=== PATIENT | male | born 1950 | race Caucasian/White ===

== ENCOUNTER 2018-06-03 09:48 | Inpatient (IN) ==
[2018-06-03] MEDS ORDERED: Clindamycin 900 MG/50 ML 900 MG/50 ML IV.SOLN IVPB ONE (10:00)
--- NOTE | 2018-06-03 10:46 | History & Physical Report ---
Date of Encounter: 06/03/18 Time of Encounter: 10:46 24 Hour HP Update - Instructions Instructions: If the History and Physical is less than 30 days old and was completed prior to A.M. admission and or procedure and has NOT been updated on calendar day of procedure please complete this update prior to performing procedure. - Update Patient reports changes in Medical Condition: No Changes in examination, assessment, or condition: No Changes in Medication: No Preop tests/diagnostics Reviewed: Yes Surgery Remains Indicated: Yes Consent for Planned Operative Procedure(s) Verified: Yes - Pre-Operative Checklist Preoperative Checklist Indicated: No Prophylactic Antibiotic Ordered: Yes Is VTE Prophylaxis Indicated?: Yes
[2018-06-03] MEDS ORDERED: *HR* Midazolam HCl 2 MG/2 ML VIAL ONE ×3 (11:33→13:31)
[2018-06-03] MEDS ORDERED: *HR* FentaNYL (PF) 100 MCG/2 ML VIAL ONE ×3 (11:33→13:31)
[2018-06-03] MEDS ORDERED: Ondansetron 4 MG/2 ML VIAL ONE ×3 (11:36→13:31)
[2018-06-03] MEDS ORDERED: Dexamethasone 4 MG/ML VIAL ONE ×3 (11:36→13:32)
[2018-06-03] MEDS ORDERED: Ketorolac 30 MG/ML VIAL ONE ×2 (12:21→13:21)
[2018-06-03] MEDS ORDERED: *HR* Propofol 200 MG/20 ML VIAL IVP ONE ×2 (12:22→13:21)
[2018-06-03] MEDS ORDERED: *HR* Succinylcholine 200 MG/10 ML VIAL IVP ONE ×2 (12:22→13:20)
[2018-06-03] MEDS ORDERED: Famotidine 20 MG/2 ML VIAL IVP ONE (12:26)
[2018-06-03] MEDS ORDERED: Acetaminophen IV 1,000 MG/100 ML INFUS..BTL IVPB ONE (12:26)
[2018-06-03] MEDS ORDERED: Pregabalin 75 MG CAPSULE PO ONE (12:26)
[2018-06-03] MEDS: Ringers Solution, Lactated 1,000 ML IVC SCH ×3 (13:11→20:00)
[2018-06-03] MEDS ORDERED: Ethanol\\Acetic Acid\\Na Ace\\Ben 1,000 ML IRRIG.SOLN IR ONE (13:17)
[2018-06-03] MEDS ORDERED: Lidocaine -MPF 4% 5 ML AMPUL ONE (13:20)
[2018-06-03] MEDS ORDERED: Lidocaine -MPF 2% 2 ML VIAL ONE ×2 (13:20→13:42)
[2018-06-03] MEDS ORDERED: Propofol 500 MG/50 ML INFUS..BTL ONE ×2 (13:33)
--- NOTE | 2018-06-03 13:34 | Anesthesia Evaluation PreOp ---
Date of Encounter: 06/03/18 Time of Encounter: 13:30 - Past History Planned Operation: Bilateral TKA Cardiac History: HTN, Hyperlipidemia Pulmonary History: Denies Any Significant HX, RAKESH Dx (CPAP) RATER ASSOCIATE History: Denies Any Significant HX Other Medical History: Diabetes Type II, Thyroid, GERD, Other (MO) Anesthesia History: No Prior Anesthetic Complications Alcohol Use: none Drug use: none Medications and Allergies Aspirin [Lo-Dose Aspirin EC] 81 mg PO DAILY 06/03/18 [History] Atorvastatin Calcium 80 mg PO HS 06/03/18 [History] Cholecalciferol (D-3) [Vitamin D] 1,000 unit PO DAILY 06/03/18 [History] FLUoxetine HCl [PROzac] 60 mg PO QAM 06/03/18 [History] Levothyroxine [Synthroid] 50 mcg PO 0630 06/03/18 [History] Lisinopril [Zestril] 5 mg PO DAILY 06/03/18 [History] Meclizine HCl [Verticalm] 25 mg PO TID 06/03/18 [History] Melatonin [Melatin] 3 mg PO HS 06/03/18 [History] Metformin HCl [Glucophage Xr] 750 mg PO QPM 06/03/18 [History] Naproxen [Naprosyn] 500 mg PO Q12H 06/03/18 [History] Omeprazole [PriLOSEC] 20 mg PO DAILY 06/03/18 [History] OxyCODONE ER (12 HR) [OxyCONTIN] 10 mg PO TID 06/03/18 [History] Pregabalin [Lyrica] 75 mg PO BID 06/03/18 [History] 3 Allergy/AdvReac Type Severity Reaction Status Date / Time diphenhydramine Allergy Hives Verified 06/03/18 10:26 [From Benadryl] Penicillins Allergy Hives Verified 06/03/18 10:26 - Meds/Allergy Pre-op Review Medications Reviewed: Yes Allergies Reviewed: Yes Beta Blockers on Current Med List: No Anesthesia Results - Labs Laboratory Tests 05/27/18 05/27/18 09:38 09:38 Hgb 13.5 Hct 40.5 Plt Count 192 Sodium 138 Potassium 4.4 BUN 26 H Creatinine 0.79 - Imaging EKG: report reviewed (SR) Anesthesia Exam O2 Sat Height 1.88 m Height 1.88 m Height 1.88 m Weight 142.428 kg Weight 142.428 kg Weight 142.428 kg O2 Sat by Pulse Oximetry 94 Vital Signs Temp Pulse Resp BP Pulse Ox 98.6 F 80 18 129/82 94 06/03/18 10:15 06/03/18 10:15 06/03/18 10:15 06/03/18 10:15 06/03/18 10:15 Height: 6'2 Weight: 314 lbs NPO (# of Hours): MN Pain Scale: 0 - HEENT Pupil (Motor): Pupils equal, EOMI Mallampati: II Oral Opening: Greater than 3 - RATER ASSOCIATE LOC: Oriented RATER ASSOCIATE Motor: Normal RUE, Normal LUE, Normal RLE, Normal LLE, Normal Face RATER ASSOCIATE Sensory: Normal: RUE, LUE, RLE, LLE, Face - Cardiac Rhythm: Regular Murmur: None JVD: No Carotid Bruit: No - Pulmonary Breath Sounds: bilateral Clear Respiratory Effort: Symmetrical Anesthesia Assess/Plan ASA Score: 1 (MO RAKESH DM), 3 Modified Callahan Scale for Level of Consciousness: Cooperative, oriented, and tranquil Anesthetic Plan: Regional, MAC Monitoring Plan: Standard Monitors Recovery Plan: PACU (Discussed SAB, MAC, Adductor Canal Block, possible GA, agrees to proceed)
[2018-06-03] MEDS ORDERED: Dexmedetomidine HCl 400 MCG/100 ML MLS IVC ONE (13:41)
[2018-06-03] MEDS ORDERED: ROPIVACAINE HCL/PF 0.5% 30 ML VIAL ONE (13:41)
--- NOTE | 2018-06-03 14:21 | Anesthesia Procedures ---
Date of Encounter: 06/03/18 Time of Encounter: 14:00 Procedures: Anesthesia - Epidural/Spinal Patient ID/Chart reviewed: Yes Patient examined: Yes Supplemental Oxygen: Nasal Cannula Supplemental Oxygen Rate (L/min): 2 Sedation: Versed (mg): 2 Sedation: Fentanyl (mcg): 100 Site Prep: Sterile prep and drape, 0.5% Chlorhexidine/Alcohol Patient position: upright Local Anesthetic: Lidocaine 1% Interspace Used: L3-L4 Blood: No CSF: Yes Paresthesia: No Spinal Needle Gauge: 22 Spinal Dose: 2.5 ml of 0.5% bupivacaine with 300mcgs duramorph Procedure: bilateral robotic knees Vitals + FHT's: Vital Signs/O2 Sat, Most Current Temp Pulse Resp BP Pulse Ox 98.6 F 80 18 136/97 96 06/03/18 10:15 06/03/18 13:53 06/03/18 10:15 06/03/18 13:53 06/03/18 13:53
--- NOTE | 2018-06-03 15:04 | Anesthesia Procedures ---
Date of Encounter: 06/03/18 Time of Encounter: 14:25 Procedures: Anesthesia - Nerve Block Procedure Date: 06/03/18 Time: 14:25 Checklist: Correct Patient Identifier, Correct procedure, History checked Correct side: Left Blood Thinner: No Monitor Applied: EKG, BP, Pulse Oximetry Supplemental Oxygen via Nasal Cannula (L/min): 2 Indication: Post Op Analgesia Pre-op Neuro Deficits: No Block Type: Other (bilateral adductor canal blocks left and right) Catheter placed: No Sterile Technique: Yes Ultrasound used: Yes Anatomy identified: Yes Visual spread of Local: Yes Neuro Stimulation: No Blood on Needle Aspiration: No Smooth Injection of Local: Yes Pain with Injection of Local: No Prep: Chlorhexadine Needle: 21 x 100 mm Stimuplex Local: Ropivacaine (0.5 % with 20 mcgs of precedex) Volume (cc): 30 Number of Attempts: 1 Complications: None/effective block Vitals: Vital Signs/O2 Sat, Most Current Temp Pulse Resp BP Pulse Ox 98.6 F 80 18 136/97 96 06/03/18 10:15 06/03/18 13:53 06/03/18 10:15 06/03/18 13:53 06/03/18 13:53 Comments: thsi is was a bilateral adductor canal block left and right side performed. Andrew Stoll NEW ACCOUNTS BANKING REPRESENTATIVE right side and lennox johnson NEW ACCOUNTS BANKING REPRESENTATIVE left side.
--- NOTE | 2018-06-03 16:06 | Orthopedic Operative Note ---
Date of procedure: 06/03/18 Pre-op diagnosis: Bilateral knee arthritis Post-op diagnosis: same Procedure: Procedure: Bilateral robotic-assisted Total knee replacement Estimated blood loss:500 cc Hardware: Metal and polyethylene replacement. Both knees Weldon Femur: 7 Tibia: 7 TS insert: 11 Patella: 39 Exam Under anesthesia: Left knee, 1 degree flexion contracture 4 degree varus, right knee, 9 degree flexion contracture 5 degree varus as calculated by the robot full flexion and no instability Procedural Notes: Left knee patient noted to have grade 3 arthritic changes all 3 compartments, right knee patient noted to have grade 4 arthritic changes all 3 compartments. Operative procedure: The patient was brought to the operating room and placed on the operating room table. After general anesthesia was administered the operative knee was examined. Findings were noted in the exam under anesthesia. The operative extremity was prepped and draped in sterile surgical fashion. The patient received IV antibiotics prior to skin incision. Surgery dictated will be for both knees any differences will be highlighted surgery began with the left knee followed by the right knee. A standard midline incision was made centered over the patella. The incision was made through the skin and subcutaneous tissue. A medial parapatellar tendon approach was performed. Care was taken to preserve tissue along the medial aspect of the patella. And to protect the patella tendon. The deep MCL was released off the medial tibia. The infra patella fat pad was excised. The patella was everted and cut was made at the level of the insertion of the quadriceps and patella tendon. The patella was sized to a 39 the guide was seated and the lug holes are drilled. Knee was brought into flexion. Patient noted to have grade 3 arthritic changes all 3 compartments left knee, grade 4 arthritic changes all 3 compartments right knee. Steinmann pins were placed in the tibia and the femur for the tibial and femoral arrays respectively. Checkpoints were also placed in the tibia and the femur for calculation purposes. The knee including the femur and the tibial registered. Osteophytes, ACL and PCL were excised at this point. Extension and flexion were assessed with a valgus stress components were adjusted on the computer to balance the knee. Femoral cuts were made first with robotic assistance, these included the anterior cut posterior cuts chamfer cuts. Tibial cut was then performed with robotic assistance as well. Bone fragments were removed, as well as the medial and lateral meniscus. The size 7 femoral guide was seated box cut was made lug holes are drilled. The size 7 tibial tray was seated and prepared with the fin cutter. Trial reduction with the 11 TS Theresa revealed extension of 0 degree and 2 degree varus left knee 3 degrees varus right knee, full flexion. No varus valgus instability. Trial reduction revealed excellent patella tracking. All trial components were removed all bony surfaces were irrigated. The Tibia was seated followed by the femur, The Theresa size 11 was seated and secured patella. Patient had similar findings for motion and stability. The knee was closed by the PA. The knee was then irrigated out with 2 L of pulse irrigation. The extensor mechanism was closed with #2 FiberWire suture and #2 PDS suture. The subcutaneous tissue was then irrigated and closed deep with #1 PDS suture superficially with 0 PDS suture and skin was closed with zip tie The patient was then placed in a sterile dressing and a postoperative brace extubated and transferred to recovery room in stable condition. Anesthesia: spinal Surgeon: Michael Carpio Was there an cosmetic sales assistant present: Yes Solar Process Engineer: Lillie Nair Estimated blood loss (cc): 500 Condition: stable Disposition: PACU
[2018-06-03 17:33] LABS: Hemoglobin 12.1 g/dL (12.9-16.9)
[2018-06-03] MEDS ORDERED: Ondansetron 4 MG/2 ML VIAL IVP PRN (18:11)
[2018-06-03] MEDS ORDERED: traMADol 50 MG TABLET PO PRN (18:11)
[2018-06-03] MEDS ORDERED: MOM Conc 10 ML UD.LIQ PO PRN (18:11)
[2018-06-03] MEDS ORDERED: *HR* Dextrose 50 % in Water (Syg) 50 ML SYRINGE IVP PRN (18:11)
[2018-06-03] MEDS ORDERED: D5% in Water 1,000 ML IVC PRN (18:11)
[2018-06-03] MEDS ORDERED: Sennosides 8.6 MG TABLET PO PRN (18:11)
[2018-06-03] MEDS ORDERED: *HR* OxyCODONE/APAP 5/325 TABLET PO PRN (18:11)
[2018-06-03] MEDS ORDERED: Temazepam 15 MG CAPSULE PO PRN (18:11)
[2018-06-03] MEDS ORDERED: Dextrose Gel 15 GM/37.5 ML TUBE PO PRN ×2 (18:11)
[2018-06-03] MEDS ORDERED: *HR* OxyCODONE Immed Rel 5 MG TABLET PO PRN (18:11)
[2018-06-03] MEDS ORDERED: Naloxone 0.4 MG/ML INJ IVP PRN (18:11)
[2018-06-03] MEDS: Clindamycin 900 MG/50 ML 900 MG/50 ML IV.SOLN IVPB SCH (20:00)
[2018-06-03] MEDS: Pregabalin 75 MG CAPSULE PO SCH (20:01)
[2018-06-03] MEDS: Melatonin 3 MG TABLET PO SCH (20:01)
[2018-06-03] MEDS: *HR* OxyCODONE ER (12 HR) 10 MG TABLET PO SCH (20:08)
[2018-06-03] MEDS: *HR* Enoxaparin 30 MG/0.3 ML SYRINGE SQ SCH (20:08)
[2018-06-03] MEDS: Insulin LISPRO 300 UNITS/3 ML VIAL SQ SCH ×2 (20:20→22:48)
[2018-06-04 01:57] LABS: Hematocrit 35.8 % (37.5-50.1); Hemoglobin 11.7 g/dL (12.9-16.9)
[2018-06-04 02:13] LABS: Potassium 5.3 mEq/L (3.5-5.1)
[2018-06-04] MEDS: Clindamycin 900 MG/50 ML 900 MG/50 ML IV.SOLN IVPB SCH (05:13)
[2018-06-04] MEDS: *HR* Enoxaparin 30 MG/0.3 ML SYRINGE SQ SCH ×2 (05:13→17:10)
[2018-06-04] MEDS: *HR* OxyCODONE ER (12 HR) 10 MG TABLET PO SCH ×2 (05:14→17:10)
[2018-06-04] MEDS: Insulin LISPRO 300 UNITS/3 ML VIAL SQ SCH ×4 (08:33→20:15)
[2018-06-04] MEDS: Cholecalciferol (D-3) 1,000 UNIT TABLET PO SCH (08:34)
[2018-06-04] MEDS: *HR* Metformin 500 MG TABLET PO SCH ×2 (08:34→17:09)
[2018-06-04] MEDS: FLUoxetine 20 MG CAPSULE PO SCH (08:34)
[2018-06-04] MEDS: Pregabalin 75 MG CAPSULE PO SCH ×2 (08:35→20:01)
--- NOTE | 2018-06-04 08:59 | Anesthesia Evaluation Post Op ---
Date of Encounter: 06/04/18 Time of Encounter: 09:00 - Vital Signs Vital Signs: Vital Signs/O2 Sat/Glucose, Most Current Temp Pulse Resp BP Pulse Ox 06/04/18 06:56 97.7 F 87 16 107/63 92 - Lungs Lungs: Clear Ascult./Percussion - Airway Airway: Non-obstructed - Cardiovascular Regular Rate - Mental Status Mental Status: Alert & Oriented, Answers Appropriately - Pain Pain Scale: 0 - Nausea Vomiting Nausea Vomiting: Not Present - Hydration Hydration: Tolerates oral liquids - Discharge PostOp Status: Transfer Patient to floor
--- NOTE | 2018-06-04 12:57 | Physician Discharge Referral ---
<Milana Adams L - Last Filed: 06/04/18 12:55> [facility] Referral Info Transfer To: F Provider in Charge: Provider in Charge after Transfer: PCP Institutional Level of Care: Skilled - Diagnosis (1) Status post total bilateral knee replacement Priority: Primary Status: Acute (2) Arthritis of knee Priority: Primary Status: Acute (3) Chronic pain Priority: Secondary Status: Chronic (4) RAKESH (obstructive sleep apnea) Priority: Secondary Status: Chronic (5) DMII (diabetes mellitus, type 2) Priority: Secondary Status: Chronic (6) HLD (hyperlipidemia) Priority: Secondary Status: Chronic (7) HTN (hypertension) Priority: Secondary Status: Chronic (8) Obesity Priority: Secondary Status: Chronic (9) Acute renal injury Priority: Secondary Status: Acute Expected Duration of Placement: < 30 days Prognosis: Good Aware of Diagnosis: Patient Aware of Prognosis: Patient - Transfer Medications Home Medications: Aspirin Enteric Coated [Aspirin EC] 325 mg PO BID #20 tablet. 06/03/18 [Rx] Aspirin [Lo-Dose Aspirin EC] 81 mg PO DAILY 06/03/18 [History] Atorvastatin Calcium 80 mg PO HS 06/03/18 [History] Cholecalciferol (D-3) [Vitamin D] 1,000 unit PO DAILY 06/03/18 [History] FLUoxetine HCl [PROzac] 60 mg PO QAM 06/03/18 [History] Levothyroxine [Synthroid] 50 mcg PO 0630 06/03/18 [History] Lisinopril [Zestril] 5 mg PO DAILY 06/03/18 [History] Meclizine HCl [Verticalm] 25 mg PO TID 06/03/18 [History] Melatonin [Melatin] 3 mg PO HS 06/03/18 [History] Metformin HCl [Glucophage Xr] 750 mg PO QPM 06/03/18 [History] Naproxen [Naprosyn] 500 mg PO Q12H 06/03/18 [History] Omeprazole [PriLOSEC] 20 mg PO DAILY 06/03/18 [History] OxyCODONE ER (12 HR) [OxyCONTIN] 10 mg PO TID 06/03/18 [History] OxyCODONE Immed Rel [Roxicodone 5 MG] 2 tab PO BID PRN 7 Days #14 tablet [Rx] Pregabalin [Lyrica] 75 mg PO BID 06/03/18 [History] Allergies/Adverse Reactions: 3 Allergy/AdvReac Type Severity Reaction Status Date / Time diphenhydramine Allergy Hives Verified 06/03/18 10:26 [From Benadryl] Penicillins Allergy Hives Verified 06/03/18 10:26 - Respiratory Orders None Smoking Cessation: Smoking cessation has been advised. For more information, call the [employer] Quit Line at 3-491-SOIF-NOW. - Mobility Orders Chair, Ambulate - Rehabiliation Orders Rehab Potential: Good Rehab Orders: ROM Exercises, Evaluation for Physical Therapy, Evaluation for Occupational Therapy - Treatments List/Other: Opsite dressing, leave intact until first post-operative visit. If dressing becomes >50% saturated, contact office, remove dressing and place appropriate dressing in its place. Do not allow for dressing to get wet. Zipline/Seaside in place, plan to remove at post-operative day #14-16. Total Joint Precautions x 6 weeks Apply cold therapy wrap 3-6x/day for 20 minutes at a time. Encourage ambulation throughout the day Use Incentive spirometer 10x/hour. Elevate affected extremity above heart as tolerated. Brace: Wear knee immobilizer at night x 2 weeks. - Diet Orders Regular CERTIFICATION: I certify that the transfer of the above named patient to an Extended Care Facility is necessary for the continuing treatment of the diagnosis listed. The above information is true and accurate reflection of patient's current condition. Confidential - Redisclosure prohibited without a patient's written consent. <Michael Carpio - Last Filed: 06/05/18 07:44> - Respiratory Orders Smoking Cessation: Smoking cessation has been advised. For more information, call the [employer] Quit Line at 6-849-JEQP-NOW. CERTIFICATION: I certify that the transfer of the above named patient to an Extended Care Facility is necessary for the continuing treatment of the diagnosis listed. The above information is true and accurate reflection of patient's current condition. Confidential - Redisclosure prohibited without a patient's written consent.
[2018-06-04] MEDS ORDERED: 0.9 % Sodium Chloride 500 ML IVC ONE (12:58)
[2018-06-04] MEDS: Ringers Solution, Lactated 1,000 ML IVC SCH (15:19)
--- NOTE | 2018-06-04 16:41 | Orthopedics Progress Note ---
Date of Encounter: 06/04/18 Time of Encounter: 12:00 - Assessment and Plan (1) Status post total bilateral knee replacement Current Visit: Yes Status: Acute POD#1 - Bilateral TKR 06/04 - Afebrile, vital signs stable. Labs reviewed. H/H stable, asymptomatic Renal: Baseline GFR > 60 06/04: GFR 28, BUN 26, Creat elevated. Pain control: adequate - Chronic Pain medication - continued Oxycontin 10mg TID Participating in PT. . Assessment and plan: TKR:Continue with postoperative care ACUTE KIDNEY INJURY: BOLUS GIVEN, ENCOURAGED ORAL HYDRATION, REPEAT BMP IN AM - CONSIDER RENAL CONSULT IF NO IMPROVEMENT Discharge plan: ECF - ON SUNDAY - patient transitioned to inpatient secondary to continued post- operative pain and need for group home and physical therapy. Apply cold therapy wrap 3-6x/day for 20 minutes at a time. Encourage ambulation throughout the day Use Incentive spirometer 10x/hour. Elevate affected extremity above heart as tolerated. Brace: Wear knee immobilizer at night x 2 weeks. All questions and concerns addressed. Educated on use of incentive spirometer. Encouraged ambulation and proper hydration. Patient educated on post-operative restrictions and post-operative care (2) Arthritis of knee Current Visit: Yes Status: Acute (3) Chronic pain Current Visit: No Status: Chronic Qualifiers: Chronic pain type: other chronic pain Qualified Code(s): G89.29 - Other chronic pain (4) RAKESH (obstructive sleep apnea) Current Visit: No Status: Chronic (5) DMII (diabetes mellitus, type 2) Current Visit: No Status: Chronic Qualifiers: Diabetes mellitus half-way insulin use: unspecified terminal gauger insulin use status Diabetes mellitus complication status: with oral complications Diabetes mellitus complication detail: with other oral complications Qualified Code(s): E11.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 (6) HLD (hyperlipidemia) Current Visit: Yes Status: Chronic Qualifiers: Hyperlipidemia type: unspecified Qualified Code(s): E78.5 - Hyperlipidemia , unspecified (7) HTN (hypertension) Current Visit: No Status: Chronic Qualifiers: Hypertension type: essential hypertension Qualified Code(s): I10 - Essential (primary) hypertension (8) Obesity Current Visit: No Status: Chronic Qualifiers: Obesity type: due to excess calories Obesity classification: unspecified obesity classification Serious obesity comorbidity presence: unspecified whether serious comorbidity present Qualified Code(s): E66.09 - Other obesity due to excess calories (9) Acute renal injury Current Visit: Yes Status: Acute Subjective Principal diagnosis: Bilateral TKR 06/04 Interval history: POD#1 - Bilateral TKR 06/04 - Patient seen at bedside, without complaints. Afebrile, vital signs stable. Labs reviewed. H/H stable, asymptomatic Renal: Baseline GFR > 60 06/04: GFR 28, BUN 26, Creat elevated. Pain control: adequate - Chronic Pain medication - continued Oxycontin 10mg TID Participating in PT. Bilateral LE: No erythema noted. Dressings c/d/i No calf tenderness to either extremity NV intact distally. . Assessment and plan: Continue with postoperative care Discharge plan: ECF - patient transitioned to inpatient secondary to continued post-operative pain and need for group home and physical therapy. Apply cold therapy wrap 3-6x/day for 20 minutes at a time. Encourage ambulation throughout the day Use Incentive spirometer 10x/hour. Elevate affected extremity above heart as tolerated. Brace: Wear knee immobilizer at night x 2 weeks. All questions and concerns addressed. Educated on use of incentive spirometer. Encouraged ambulation and proper hydration. Patient educated on post-operative restrictions and post-operative care Objective Vital signs: Vital Signs Temp Pulse Resp BP Pulse Ox 06/04/18 15:22 98.8 F 108 18 131/71 93 06/04/18 12:17 97.9 F 107 16 121/62 97 06/04/18 06:56 97.7 F 87 16 107/63 92 06/04/18 02:41 98.5 F 90 16 103/64 94 06/03/18 22:15 97.7 F 92 16 109/56 92 06/03/18 21:15 97.5 F L 88 16 98/58 93 06/03/18 20:15 97.7 F 91 16 96/59 93 06/03/18 19:30 98.1 F 96 16 95/59 93 06/03/18 18:20 97.8 F 84 94/56 93 06/03/18 17:33 80 20 109/70 93 06/03/18 17:18 97.7 F 80 20 109/70 93 06/03/18 17:08 80 20 110/30 93 06/03/18 16:58 78 20 104/61 93 06/03/18 16:48 97.4 F L 74 14 89/62 96 Intake and Output 06/04/18 06/04/18 06/04/18 07:59 15:59 23:59 Intake Total / 50 1880 / 1880 Output Total 0 / 0 500 / 500 Balance 1380 / 1380 Intake: IV Fluids 1000 / 1000 Lactated Ringers 1,000 ML @ 75 1000 / 1000 mls/hr IVC .[id number] [facility] Rx#: [id number] Oral 880 / 880 Output: Urine 0 / 0 Straight Cath 500 / 500 Other: Meal Lunch Percent of Meal Consumed 100% Blood Glucose* 252 Incision: clean and dry - Labs CBC & BMP: 06/04/18 01:30 06/04/18 01:30 Labs: Abnormal lab results Hgb 11.7 g/dL (12.9-16.9) L 06/04/18 01:30 Hct 35.8 % (37.5-50.1) L 06/04/18 01:30 Potassium 5.3 mEq/L (3.5-5.1) H 06/04/18 01:30 Carbon Dioxide 22 mEq/L (23-29) L 06/04/18 01:30 BUN 30 mg/dL (8-23) H 06/04/18 01:30 Creatinine 2.30 mg/dL (0.70-1.30) H 06/04/18 01:30 Est GFR ( Amer) 34 (> 60) L 06/04/18 01:30 Est GFR (Non-Af Amer) 28 (> 60) L 06/04/18 01:30 Glucose 231 mg/dL (70-105) H 06/04/18 01:30 POC Glucose 252 mg/dL (70-99) H 06/04/18 11:38 - VTE Documentation of Mechanical Device: Venous foot pump, device Consult Discharge Plan - Plan [facility]errals: [facility]Primary Care Provider[facility] - Prescriptions: Aspirin Enteric Coated [Aspirin EC] 325 mg PO BID #20 tablet.dr [email or web address] Immed Rel [Roxicodone 5 MG] 2 tab PO BID PRN 7 Days #14 tablet PRN Reason: Severe Pain
[2018-06-04] MEDS: Melatonin 3 MG TABLET PO SCH (20:00)
[2018-06-05 01:35] LABS: Hematocrit 29.4 % (37.5-50.1)
[2018-06-05 01:50] LABS: Hemoglobin 9.8 g/dL (12.9-16.9)
[2018-06-05 01:53] LABS: BUN/Creatinine Ratio 25 (6-26); Blood Urea Nitrogen 34 mg/dL (8-23); Calcium 9.2 mg/dL (8.6-10.3); Carbon Dioxide 23 mEq/L (23-29); Chloride 99 mEq/L (98-107); Glucose 233 mg/dL (70-105); Osmolality,Calculated 297 (280-300); Potassium 4.5 mEq/L (3.5-5.1); Sodium 136 mEq/L (136-145); eGFR For African Americans > 60 (> 60); eGFR For Non-African Americans 52 (> 60)
[2018-06-05] MEDS: *HR* Enoxaparin 30 MG/0.3 ML SYRINGE SQ SCH ×2 (05:41→17:32)
[2018-06-05] MEDS: *HR* OxyCODONE ER (12 HR) 10 MG TABLET PO SCH ×2 (05:41→17:32)
[2018-06-05] MEDS: Ringers Solution, Lactated 1,000 ML IVC SCH ×2 (05:42→20:37)
--- NOTE | 2018-06-05 07:45 | Orthopedics Progress Note ---
Date of Encounter: 06/05/18 Time of Encounter: 07:44 Subjective Principal diagnosis: Bilateral TKR 06/04 Interval history: Patient was seen this morning doing well without complaints. Afebrile vital signs stable. Operative extremity: Neurovascularly intact Dressing clean dry and intact Calves nontender Assessment and plan: Continue with postoperative care Kidney function improving creatinine 1.36 plan for discharged to ECF discharge held yesterday secondary to need for ECF as determined by physical therapy Objective Vital signs: Vital Signs Temp Pulse Resp BP Pulse Ox 06/05/18 04:00 99.8 F H 77 16 110/62 97 06/04/18 23:42 100.5 F H 81 18 109/57 96 06/04/18 20:22 98.5 F 77 16 142/78 94 06/04/18 15:22 98.8 F 108 18 131/71 93 06/04/18 12:17 97.9 F 107 16 121/62 97 Intake and Output 06/04/18 06/04/18 06/05/18 15:59 23:59 07:59 Intake Total 1880 / 1880 240 / 240 1100 / 1100 Output Total 500 / 500 975 / 975 1000 / 1000 Balance 1380 / 1380 -735 / -735 100 / 100 Intake: IV Fluids 1000 / 1000 1000 / 1000 Lactated Ringers 1,000 ML @ 75 1000 / 1000 1000 / 1000 mls/hr IVC .[id number] [facility] Rx#: [id number] Oral 880 / 880 240 / 240 100 / 100 Output: Urine 975 / 975 1000 / 1000 Straight Cath 500 / 500 Other: Meal Lunch Dinner Percent of Meal Consumed 100% 100% Stool Size Large Stool Consistency formed Stool Characteristics Normal for Patient Stool Color Brown # Voids 1 # Bowel Movements 1 Blood Glucose* 252 174 - Labs CBC & BMP: 06/05/18 01:12 06/05/18 01:12 Labs: Abnormal lab results Hgb 9.8 g/dL (12.9-16.9) L D 06/05/18 01:12 Hct 29.4 % (37.5-50.1) L 06/05/18 01:12 BUN 34 mg/dL (8-23) H 06/05/18 01:12 Creatinine 1.36 mg/dL (0.70-1.30) H 06/05/18 01:12 Est GFR (Non-Af Amer) 52 (> 60) L 06/05/18 01:12 Glucose 233 mg/dL (70-105) H 06/05/18 01:12 POC Glucose 252 mg/dL (70-99) H 06/04/18 11:38 - VTE Documentation of Mechanical Device: Venous foot pump, device Consult Discharge Plan - Plan [facility]errals: [facility] [Primary Care Provider] -
[2018-06-05] MEDS: *HR* Metformin 500 MG TABLET PO SCH ×2 (08:34→17:32)
[2018-06-05] MEDS: FLUoxetine 20 MG CAPSULE PO SCH (08:34)
[2018-06-05] MEDS: Insulin LISPRO 300 UNITS/3 ML VIAL SQ SCH ×4 (08:34→23:28)
[2018-06-05] MEDS: Pregabalin 75 MG CAPSULE PO SCH ×2 (08:35→20:36)
[2018-06-05] MEDS: Cholecalciferol (D-3) 1,000 UNIT TABLET PO SCH (08:35)
--- NOTE | 2018-06-05 15:33 | Event Note ---
Date of Encounter: 06/05/18 Time of Encounter: 15:31 POD#2 - Bilateral TKR 06/04 - Afebrile, vital signs stable. Labs reviewed. H/H 06/05 - 9.01/23 - Will type and cross today Renal: Baseline GFR > 60 06/04: GFR 28, BUN 26, Creat elevated. 06/05: GFR 47, Creat normal Pain control: adequate - Chronic Pain medication - continued Oxycontin 10mg TID. Added Flexeril 5 mg BID Participating in PT. . Assessment and plan: TKR:Continue with postoperative care Renal: 06/04: BOLUS GIVEN, ENCOURAGED ORAL HYDRATION, REPEAT BMP IN AM -CONSIDER RENAL CONSULT IF NO IMPROVEMENT 06/05: Improved. Discharge plan: ECF - ON SUNDAY - patient transitioned to inpatient secondary to continued post- operative pain and need for custodial and physical therapy. Apply cold therapy wrap 3-6x/day for 20 minutes at a time. Encourage ambulation throughout the day Use Incentive spirometer 10x/hour. Elevate affected extremity above heart as tolerated. Brace: Wear knee immobilizer at night x 2 weeks. All questions and concerns addressed. Educated on use of incentive spirometer. Encouraged ambulation and proper hydration. Patient educated on post-operative restrictions and post-operative care
[2018-06-05] MEDS: Melatonin 3 MG TABLET PO SCH (20:36)
[2018-06-06 01:53] LABS: Hematocrit 27.1 % (37.5-50.1); Hemoglobin 9.1 g/dL (12.9-16.9)
[2018-06-06 02:10] LABS: BUN/Creatinine Ratio 28 (6-26); Blood Urea Nitrogen 23 mg/dL (8-23); Calcium 9.2 mg/dL (8.6-10.3); Carbon Dioxide 28 mEq/L (23-29); Chloride 101 mEq/L (98-107); Glucose 221 mg/dL (70-105); Osmolality,Calculated 292 (280-300); Potassium 4.4 mEq/L (3.5-5.1); Sodium 136 mEq/L (136-145); eGFR For African Americans > 60 (> 60); eGFR For Non-African Americans > 60 (> 60)
[2018-06-06] MEDS: *HR* OxyCODONE ER (12 HR) 10 MG TABLET PO SCH ×2 (05:36→16:51)
[2018-06-06] MEDS: *HR* Enoxaparin 30 MG/0.3 ML SYRINGE SQ SCH ×2 (07:24→16:51)
--- NOTE | 2018-06-06 08:13 | Orthopedics Progress Note ---
Date of Encounter: 06/06/18 Time of Encounter: 08:12 Subjective Principal diagnosis: Bilateral TKR 06/04 Interval history: Patient was seen this morning doing well without complaints. Afebrile vital signs stable. Operative extremity: Neurovascularly intact Dressing clean dry and intact Calves nontender Assessment and plan: Continue with postoperative care Hemoglobin 9.1 [facility] Objective Vital signs: Vital Signs Temp Pulse Resp BP Pulse Ox 06/06/18 07:14 98.3 F 94 17 149/88 93 06/06/18 00:34 98.8 F 103 16 122/75 92 06/05/18 20:10 92 06/05/18 19:41 99.1 F 99 18 124/75 92 06/05/18 14:40 98.2 F 95 16 153/84 96 06/05/18 11:43 98.9 F 71 17 130/80 94 06/05/18 08:29 98.4 F 86 16 128/78 94 Intake and Output 06/05/18 06/06/18 06/06/18 23:59 07:59 15:59 Intake Total 1240 / 1240 400 / 400 Output Total 850 / 850 350 / 350 Balance 390 / 390 50 / 50 Intake: IV Fluids 1000 / 1000 Lactated Ringers 1,000 ML @ 75 1000 / 1000 mls/hr IVC .[id number] SCOTT Rx#: [id number] Oral 240 / 240 400 / 400 Output: Urine 850 / 850 350 / 350 Other: Meal Dinner Percent of Meal Consumed 100% Blood Glucose* 178 200 - Labs CBC & BMP: 06/06/18 01:23 06/06/18 01:23 Labs: Abnormal lab results Hgb 9.1 g/dL (12.9-16.9) L 06/06/18 01:23 Hct 27.1 % (37.5-50.1) L 06/06/18 01:23 BUN/Creatinine Ratio 28 (6-26) H 06/06/18 01:23 Glucose 221 mg/dL (70-105) H 06/06/18 01:23 POC Glucose 192 mg/dL (70-99) H 06/05/18 16:01 - VTE Documentation of Mechanical Device: Venous foot pump, device Consult Discharge Plan - Plan [facility]: [facility] [Primary Care Provider[facility] -
[2018-06-06] MEDS: Insulin LISPRO 300 UNITS/3 ML VIAL SQ SCH ×3 (08:18→16:50)
[2018-06-06] MEDS: *HR* Metformin 500 MG TABLET PO SCH ×2 (08:19→16:51)
[2018-06-06] MEDS: Pregabalin 75 MG CAPSULE PO SCH ×2 (08:19→21:03)
[2018-06-06] MEDS: FLUoxetine 20 MG CAPSULE PO SCH (08:19)
[2018-06-06] MEDS: Cholecalciferol (D-3) 1,000 UNIT TABLET PO SCH (08:19)
--- NOTE | 2018-06-06 16:48 | Event Note ---
Date of Encounter: 06/06/18 Time of Encounter: 12:00 POD#3 - Bilateral TKR 06/04 - Afebrile, vital signs stable. Labs reviewed. H/H 06/05 - .01/23 - Will type and cross today 06/06 - .12/22 asympto Renal: Baseline GFR > 60 06/04: GFR 28, BUN 26, Creat elevated. 06/05: GFR 47, Creat normal 06/06: Kidney function improved Pain control: adequate - Chronic Pain medication - continued Oxycontin 10mg TID. Added Flexeril 5 mg BID 06/06: Lidoderm added. Participating in PT. . Assessment and plan: TKR:Continue with postoperative care Renal: 06/04: BOLUS GIVEN, ENCOURAGED ORAL HYDRATION, REPEAT BMP IN AM -CONSIDER RENAL CONSULT IF NO IMPROVEMENT 06/05: Improved. Discharge plan: ECF - ON SUNDAY - patient transitioned to inpatient secondary to continued post- operative pain and need for senior care and physical therapy. Apply cold therapy wrap 3-6x/day for 20 minutes at a time. Encourage ambulation throughout the day Use Incentive spirometer 10x/hour. Elevate affected extremity above heart as tolerated. Brace: Wear knee immobilizer at night x 2 weeks. All questions and concerns addressed. Educated on use of incentive spirometer. Encouraged ambulation and proper hydration. Patient educated on post-operative restrictions and post-operative care
[2018-06-06] MEDS: Melatonin 3 MG TABLET PO SCH (21:02)
[2018-06-07] MEDS: Insulin LISPRO 300 UNITS/3 ML VIAL SQ SCH ×3 (03:31→13:00)
[2018-06-07] MEDS: *HR* Enoxaparin 30 MG/0.3 ML SYRINGE SQ SCH (05:09)
[2018-06-07] MEDS: *HR* OxyCODONE ER (12 HR) 10 MG TABLET PO SCH (05:09)
--- NOTE | 2018-06-07 06:49 | Orthopedics Progress Note ---
Date of Encounter: 06/07/18 Time of Encounter: 06:49 Subjective Principal diagnosis: Bilateral TKR 06/04 Interval history: Patient was seen this morning doing well without complaints. Afebrile vital signs stable. Operative extremity: Neurovascularly intact Dressing clean dry and intact Calves nontender Assessment and plan: Continue with postoperative care Discharged today Objective Vital signs: Vital Signs Temp Pulse Resp BP Pulse Ox 06/06/18 23:15 98.5 F 87 16 135/79 94 06/06/18 21:08 97 06/06/18 18:46 99.5 F 106 16 120/67 97 06/06/18 15:48 98.5 F 97 18 147/83 93 06/06/18 12:12 98.3 F 106 18 133/76 95 06/06/18 07:14 98.3 F 94 17 149/88 93 Intake and Output 06/06/18 06/06/18 06/07/18 15:59 23:59 07:59 Output Total 200 / 200 Balance -200 / -200 Output: Urine 200 / 200 Other: Stool Size Large Small Stool Consistency soft loose Stool Color Brown Brown # Voids 1 # Bowel Movements 1 Blood Glucose* 206 197 - Labs CBC & BMP: 06/06/18 01:23 06/06/18 01:23 Labs: Abnormal lab results Hgb 9.1 g/dL (12.9-16.9) L 06/06/18 01:23 Hct 27.1 % (37.5-50.1) L 06/06/18 01:23 BUN/Creatinine Ratio 28 (6-26) H 06/06/18 01:23 Glucose 221 mg/dL (70-105) H 06/06/18 01:23 POC Glucose 197 mg/dL (70-99) H 06/06/18 20:03 - VTE Documentation of Mechanical Device: Venous foot pump, device Consult Discharge Plan - Plan [facility]errals: [facility] [Primary Care Provider] -
[2018-06-07] MEDS: Pregabalin 75 MG CAPSULE PO SCH (08:30)
[2018-06-07] MEDS: FLUoxetine 20 MG CAPSULE PO SCH (08:30)
[2018-06-07] MEDS: Cholecalciferol (D-3) 1,000 UNIT TABLET PO SCH (08:31)
[2018-06-07] MEDS: *HR* Metformin 500 MG TABLET PO SCH (08:31)
--- NOTE | 2018-06-07 09:13 | Discharge Summary ---
Orders not resulted at time of discharge: Pending orders 06/03/18 13:37 US anesthesia pain block [US] Routine 06/07/18 09:10 H/H [Hemoglobin and Hematocrit] [HEME] Stat Date of Encounter: 06/07/18 Time of Encounter: 09:11 - Discharge Diagnosis (1) Status post total bilateral knee replacement Priority: Primary Status: Acute (2) Arthritis of knee Priority: Primary Status: Acute (3) Chronic pain Priority: Secondary Status: Chronic Comments: Discharged with home medications and chronic medications Instructed to take breakthrough Oxycodone 5 mg, 2 tabs daily #14 given (4) RAKESH (obstructive sleep apnea) Priority: Secondary Status: Chronic (5) HLD (hyperlipidemia) Priority: Secondary Status: Chronic Qualifiers: Hyperlipidemia type: unspecified Qualified Code(s): E78.5 - Hyperlipidemia , unspecified (6) HTN (hypertension) Priority: Secondary Status: Chronic Qualifiers: Hypertension type: essential hypertension Qualified Code(s): I10 - Essential (primary) hypertension (7) Obesity Priority: Secondary Status: Chronic Qualifiers: Obesity type: due to excess calories Obesity classification: adult class 3 (BMI >= 40) Serious obesity comorbidity presence: unspecified whether serious comorbidity present Body mass index: BMI 40.0-44.9 Qualified Code(s): E66.01 - Morbid (severe) obesity due to excess calories; Z68.41 - Body mass index (BMI) 40.0-44.9, adult (8) Acute blood loss as cause of postoperative anemia Priority: Secondary Status: Acute Comments: 06/07/18 H/H - Stable, Asymptomatic. (9) DMII (diabetes mellitus, type 2) Priority: Secondary Status: Chronic Qualifiers: Diabetes mellitus [facility] insulin use: unspecified [facility] insulin use status Diabetes mellitus complication status: with unspecified complications Qualified Code(s): E11.8 - Type 2 diabetes mellitus with unspecified complications - Hospital Course Hospital course: Mr. Fry is a 67 year old male, s/p Bilateral TKR. POD#4 - Bilateral TKR 06/04 - Afebrile, vital signs stable. Labs reviewed. H/H 06/05 - .2/ - Will type and cross today 06/06 - .1/ asympto 06/07 - .6 stable Renal: Baseline GFR > 60 06/04: GFR 28, BUN 26, Creat elevated. 06/05: GFR 47, Creat normal 06/06: Kidney function improved Pain control: adequate - Chronic Pain medication - continued Oxycontin 10mg TID. Added Flexeril 5 mg BID 06/06: Lidoderm added. Participating in PT. . Assessment and plan: TKR:Continue with postoperative care Renal: 06/04: BOLUS GIVEN, ENCOURAGED ORAL HYDRATION, REPEAT BMP IN AM -CONSIDER RENAL CONSULT IF NO IMPROVEMENT 06/05: Improved. 06/06: Resolved Discharge plan: ECF - ON SUNDAY - patient transitioned to inpatient secondary to continued post- operative pain and need for [facility] and physical therapy. Apply cold therapy wrap 3-6x/day for 20 minutes at a time. Encourage ambulation throughout the day Use Incentive spirometer 10x/hour. Elevate affected extremity above heart as tolerated. Brace: Wear knee immobilizer at night x 2 weeks. All questions and concerns addressed. Educated on use of incentive spirometer. Encouraged ambulation and proper hydration. Patient educated on post-operative restrictions and post-operative care - Time Spent with Patient Total time spent providing and/or coordinating discharge services: Less than 30 minutes - Discharge Medications Home Medications: Aspirin Enteric Coated [Aspirin EC] 325 mg PO BID #20 tablet. 06/03/18 [Rx] Atorvastatin Calcium 80 mg PO HS 06/03/18 [History] Cholecalciferol (D-3) [Vitamin D] 1,000 unit PO DAILY 06/03/18 [History] FLUoxetine HCl [Prozac] 60 mg PO QAM 06/03/18 [History] Levothyroxine [Synthroid] 50 mcg PO 0630 06/03/18 [History] Lisinopril [Zestril] 5 mg PO DAILY 06/03/18 [History] Meclizine HCl [Verticalm] 25 mg PO TID 06/03/18 [History] Melatonin [Melatin] 3 mg PO HS 06/03/18 [History] Metformin HCl [Glucophage Xr] 750 mg PO QPM 06/03/18 [History] Naproxen [Naprosyn] 500 mg PO Q12H 06/03/18 [History] Omeprazole [PriLOSEC] 20 mg PO DAILY 06/03/18 [History] OxyCODONE ER (12 HR) [OxyCONTIN] 10 mg PO TID 06/03/18 [History] OxyCODONE Immed Rel [Roxicodone 5 MG] 2 tab PO BID PRN 7 Days #14 tablet [Rx] Pregabalin [Lyrica] 75 mg PO BID 06/03/18 [History] Cyclobenzaprine [Flexeril] 5 mg PO BID tablet 06/07/18 [Rx] Docusate [Colace] 100 mg PO BID capsule 06/07/18 [Rx] Lidocaine Patch [Lidoderm 5% patch] 2 each TP DAILY adh..patch 06/07/18 [Rx] MOM Conc [MILK OF MAGNESIA conc] 5 ml PO HS PRN ud.liq 06/07/18 [Rx] Ondansetron [Zofran] 4 mg IVP Q6HR PRN vial 06/07/18 [Rx] Allergies/Adverse Reactions: 3 Allergy/AdvReac Type Severity Reaction Status Date / Time diphenhydramine Allergy Hives Verified 06/03/18 10:26 [From Benadryl] Penicillins Allergy Hives Verified 06/03/18 10:26 Date of admission: 06/04/18 16:33 [facility] Consults: 06/03/18 18:11 Consult to Occupational Therapy [CONS] Routine Comment: Evaluate, develop and implement POC Reason for Consult: post knee surgery Does patient have active BEDREST order?: No Is patient medically & hemodynamically stable?: Yes Consult to Orthopedic Navigator [CONS] [CONS] Routine Consult to Physical Therapy [CONS] Routine Comment: Evaluate, develop and impliment POC Reason for Consult: post knee surgery Does patient have active BEDREST order?: No Is patient medically & hemodynamically stable?: Yes Consult to Incident Response Manager [CONS] Routine Reason for SW Consult: post op joint replacement RT Post Op Consult [CONS] Routine - VTE Documentation of Mechanical Device: Venous foot pump, device Labs on day of discharge: Labs from last 24 hours 06/06/18 06/06/18 06/06/18 20:03 12:20 08:03 POC Glucose 197 H 202 H 200 H 06/05/18 19:48 POC Glucose 178 H - Impressions ITS Impressions Knee X-Ray 06/03/18 07:35 IMPRESSION: 1. Status post right and left total knee arthroplasty with no evidence for immediate postoperative complication. D/ / Eliceo Laguerre MD / Eliceo Laguerre MD Interpreting Provider: Eliceo Laguerre MD - Patient Status Disposition: Transfer SNF Condition: Good Functional capacity at discharge: uses cane/walker Overall status at discharge: patient is back to baseline - Discharge Instructions [facility] With[facility] [Primary Care Provider[facility] -
[2018-06-07 10:04] LABS: Hematocrit 28.6 % (37.5-50.1); Hemoglobin 9.6 g/dL (12.9-16.9)
[2018-06-07 11:40] VITALS: BP 140/83
== END 2018-06-07 16:30 | DRG 462 ==
LOC: SAMDAY 09:48 → 3NENU 17:40
PROVIDERS: ADMIT Orthopaedic Surgery; ATTEND Orthopaedic Surgery

== ENCOUNTER 2020-01-14 15:52 | Inpatient (IN) ==
[2020-01-14 16:38] LABS: Hemoglobin 14.1 g/dL (12.9-16.9); Mean Corpuscular HGB Conc 32.8 g/dL (31.6-35.5); Mean Corpuscular Hemoglobin 28.3 pg (28.0-33.3); Mean Corpuscular Volume 86.2 fL (83.0-100.0); Mean Platelet Volume 12.3 fL (9.4-12.4); Platelet Count 238 K/mcL (140-400); Red Blood Count 4.99 M/mcL (4.19-5.50); Red Cell Distribution Width 14.3 % (11.5-14.5); White Blood Count 19.8 K/mcL (4.3-11.1)
[2020-01-14] MEDS: 0.9 % Sodium Chloride 1,000 ML IVC SCH ×2 (16:39→16:42)
[2020-01-14 16:55] LABS: Alanine Aminotransferase 14 Units/L (7-52); Albumin 4.3 g/dL (3.5-5.7); Albumin/Globulin Ratio 1.4 (1.1-2.2); Alkaline Phosphatase 96 Units/L (34-104); Aspartate Amino Transferase 11 Units/L (13-39); BUN/Creatinine Ratio 16 (6-26); Bilirubin,Direct 0.3 mg/dL (0.0-0.2); Bilirubin,Indirect 0.9 mg/dL (0.0-1.0); Bilirubin,Total 1.2 mg/dL (0.3-1.0); Blood Urea Nitrogen 21 mg/dL (8-23); Calcium 9.9 mg/dL (8.6-10.3); Carbon Dioxide 20 mEq/L (23-29); Chloride 99 mEq/L (98-107); Globulin 3.1 g/dL (2.4-3.5); Glucose 250 mg/dL (70-105); Lipase 9 Units/L (11-82); Osmolality,Calculated 289 (280-300); Potassium 3.9 mEq/L (3.5-5.1); Sodium 134 mEq/L (136-145); Total Protein 7.4 g/dL (6.4-8.9); eGFR For African Americans > 60 (> 60); eGFR For Non-African Americans 54 (> 60)
[2020-01-14] MEDS ORDERED: Cefepime HCl 2,000 MG in 0.9 % Sodium Chloride Mini Bag 100 ML IVPB STA (17:33)
[2020-01-14] MEDS ORDERED: Ondansetron ODT 4 MG TAB.RAPDIS SL PRN (18:03)
[2020-01-14] MEDS ORDERED: Naloxone 0.4 MG/ML INJ IVP PRN (18:03)
[2020-01-14] MEDS ORDERED: D5% in Water 1,000 ML IVC PRN (18:22)
[2020-01-14] MEDS ORDERED: *HR* Dextrose 50 % in Water (Syg) 50 ML SYRINGE IVP PRN (18:22)
[2020-01-14] MEDS ORDERED: Dextrose Gel 15 GM/37.5 ML TUBE PO PRN (18:22)
[2020-01-14 19:05] LABS: Bilirubin,Urine Negative (Negative); Blood,Urine Negative (Negative); Clarity,Urine Cloudy (Clear); Glucose,Urine (UA) 500 mg/dL (Normal); Ketones,Urine Negative (Negative); Leukocyte Esterase,Urine Negative (Negative); Nitrite,Urine Negative (Negative); Protein,Urine >=300 mg/dL (Neg-Trace); Specific Gravity,Urine 1.025 (1.010-1.025); Urobilinogen,Urine Normal (Normal)
[2020-01-14 19:10] LABS: Bacteria,Urine None Seen per hpf (None-Few); Squamous Epithelial Cell,Urine Many per lpf (None-Few)
[2020-01-14 19:13] LABS: Color,Urine Yellow (Yellow); Hyaline Casts,Urine Few per lpf (None-Few)
[2020-01-14] MEDS: levoFLOXacin 750 MG/150 ML 750 MG/150 ML BAG IVPB SCH (19:32)
[2020-01-14 19:39] LABS: RBC,Urine 0-3 per hpf (0-3)
[2020-01-14] MEDS: Melatonin 3 MG TABLET PO SCH (21:26)
[2020-01-14] MEDS: Pregabalin 75 MG CAPSULE PO SCH (21:27)
[2020-01-14] MEDS: Insulin LISPRO 300 UNITS/3 ML VIAL SQ SCH (21:29)
[2020-01-14] MEDS: *HR* Heparin 5,000 UNIT/ML VIAL SQ SCH (21:31)
[2020-01-14 22:06] LABS: Adenovirus Not Detected (Not Detect); Bordetella Pertussis Not Detected (Not Detect); Chlamydophila pneumoniae Not Detected (Not Detect); Coronavirus 229E Not Detected (Not Detect); Coronavirus HKU1 Not Detected (Not Detect); Coronavirus NL63 Not Detected (Not Detect); Coronavirus OC43 Not Detected (Not Detect); Human Metapneumovirus Not Detected (Not Detect); Human Rhinovirus/Enterovirus Not Detected (Not Detect); Influenza A Subtype 2009 H1 Not Detected (Not Detect); Influenza B Not Detected (Not Detect); Mycoplasma pneumoniae Not Detected (Not Detect); Parainfluenza Virus 1 Not Detected (Not Detect); Parainfluenza Virus 2 Not Detected (Not Detect); Parainfluenza Virus 3 Not Detected (Not Detect); Parainfluenza Virus 4 Not Detected (Not Detect); Respiratory Syncytial Virus Not Detected (Not Detect)
[2020-01-15 05:49] LABS: Basophils # 0.2 K/mcL (0.0-0.2); Basophils % 1.1 %; Eosinophils # 0.3 K/mcL (0.0-0.6); Eosinophils % 2.1 %; Hematocrit 39.3 % (37.5-50.1); Immature Granulocytes % 0.8 % (0-4); Lymphocytes # 1.9 K/mcL (0.6-4.6); Lymphocytes % 11.7 %; Mean Corpuscular HGB Conc 31.8 g/dL (31.6-35.5); Mean Corpuscular Hemoglobin 27.8 pg (28.0-33.3); Mean Corpuscular Volume 87.3 fL (83.0-100.0); Mean Platelet Volume 12.6 fL (9.4-12.4); Monocytes # 1.5 K/mcL (0.0-1.3); Monocytes % 9.2 %; Neutrophils # 11.9 K/mcL (1.6-8.9); Platelet Count 193 K/mcL (140-400); Red Cell Distribution Width 14.2 % (11.5-14.5); Segmented Neutrophils % 75.1 %; White Blood Count 15.8 K/mcL (4.3-11.1)
[2020-01-15 05:52] LABS: Hemoglobin 12.5 g/dL (12.9-16.9)
[2020-01-15] MEDS: *HR* Heparin 5,000 UNIT/ML VIAL SQ SCH ×3 (06:02→22:03)
[2020-01-15 06:11] LABS: Alanine Aminotransferase 13 Units/L (7-52); Albumin 3.7 g/dL (3.5-5.7); Albumin/Globulin Ratio 1.3 (1.1-2.2); Alkaline Phosphatase 79 Units/L (34-104); Aspartate Amino Transferase 14 Units/L (13-39); BUN/Creatinine Ratio 22 (6-26); Bilirubin,Direct 0.3 mg/dL (0.0-0.2); Bilirubin,Indirect 0.9 mg/dL (0.0-1.0); Bilirubin,Total 1.2 mg/dL (0.3-1.0); Blood Urea Nitrogen 19 mg/dL (8-23); Calcium 9.1 mg/dL (8.6-10.3); Chloride 101 mEq/L (98-107); Globulin 2.9 g/dL (2.4-3.5); Glucose 216 mg/dL (70-105); Osmolality,Calculated 289 (280-300); Potassium 4.1 mEq/L (3.5-5.1); Sodium 135 mEq/L (136-145); Total Protein 6.6 g/dL (6.4-8.9); eGFR For African Americans > 60 (> 60); eGFR For Non-African Americans > 60 (> 60)
[2020-01-15 06:25] LABS: Carbon Dioxide 23 mEq/L (23-29)
[2020-01-15] MEDS: FLUoxetine 20 MG CAPSULE PO SCH (07:52)
[2020-01-15] MEDS: Insulin LISPRO 300 UNITS/3 ML VIAL SQ SCH ×4 (07:52→21:46)
[2020-01-15] MEDS: Pregabalin 75 MG CAPSULE PO SCH ×2 (07:53→21:44)
[2020-01-15] MEDS: Aspirin Enteric Coated 81 MG Tablet PO SCH (07:53)
[2020-01-15] MEDS: Cholecalciferol (D-3) 1,000 UNIT (25MCG) TABLET PO SCH (07:53)
[2020-01-15 08:23] LABS: Acinetobacter baumannii by PCR Not Detected (Not Detect); Candida albicans by PCR Not Detected (Not Detect); Candida glabrata by PCR Not Detected (Not Detect); Candida krusei by PCR Not Detected (Not Detect); Candida parapsilosis by PCR Not Detected (Not Detect); Candida tropicalis by PCR Not Detected (Not Detect); Enterobacter cloacae Cmplx PCR Not Detected (Not Detect); Enterobacteriaceae by PCR DETECTED (Not Detect); Enterococcus by PCR Not Detected (Not Detect); Escherichia coli by PCR Not Detected (Not Detect); Klebsiella oxytoca by PCR Not Detected (Not Detect); Klebsiella pneumoniae by PCR Not Detected (Not Detect); Proteus by PCR Not Detected (Not Detect); Pseudomonas aeruginosa by PCR Not Detected (Not Detect); Serratia marcescens by PCR Not Detected (Not Detect); Staphylococcus aureus by PCR Not Detected (Not Detect); Staphylococcus by PCR Not Detected (Not Detect); Streptococcus agalactiae(B)PCR Not Detected (Not Detect); Streptococcus by PCR Not Detected (Not Detect); Streptococcus pneumoniae PCR Not Detected (Not Detect); Streptococcus pyogenes (A) PCR Not Detected (Not Detect); blaKPC Carbapenem-Resist Gene Not Detected (Not Detect)
[2020-01-15] MEDS: Acetaminophen 325 MG TABLET PO PRN ×2 (16:36→22:02)
[2020-01-15] MEDS ORDERED: MetroNIDAZOLE 500 MG/100 ML 500 MG/100 ML BAG IVPB SCH (18:07)
[2020-01-15] MEDS: levoFLOXacin 750 MG/150 ML 750 MG/150 ML BAG IVPB SCH (18:24)
[2020-01-15] MEDS ORDERED: Ketorolac 15 MG/ML VIAL IVP PRN (21:20)
[2020-01-15] MEDS ORDERED: Methyl Salicylate/Menthol 57 APPL/57 GM TUBE TP PRN (21:27)
[2020-01-15] MEDS: Melatonin 3 MG TABLET PO SCH (21:44)
[2020-01-16] MEDS: *HR* Heparin 5,000 UNIT/ML VIAL SQ SCH ×3 (06:06→20:38)
[2020-01-16 06:08] LABS: Basophils # 0.2 K/mcL (0.0-0.2); Basophils % 1.2 %; Eosinophils # 0.4 K/mcL (0.0-0.6); Eosinophils % 2.6 %; Hematocrit 39.5 % (37.5-50.1); Hemoglobin 12.6 g/dL (12.9-16.9); Immature Granulocytes % 0.7 % (0-4); Lymphocytes # 2.3 K/mcL (0.6-4.6); Lymphocytes % 16.8 %; Mean Corpuscular HGB Conc 31.9 g/dL (31.6-35.5); Mean Corpuscular Hemoglobin 27.9 pg (28.0-33.3); Mean Corpuscular Volume 87.6 fL (83.0-100.0); Mean Platelet Volume 12.6 fL (9.4-12.4); Monocytes # 1.9 K/mcL (0.0-1.3); Neutrophils # 8.8 K/mcL (1.6-8.9); Platelet Count 202 K/mcL (140-400); Red Blood Count 4.51 M/mcL (4.19-5.50); Red Cell Distribution Width 14.1 % (11.5-14.5); Segmented Neutrophils % 64.7 %; White Blood Count 13.6 K/mcL (4.3-11.1)
[2020-01-16 06:36] LABS: Alanine Aminotransferase 17 Units/L (7-52); Albumin 3.8 g/dL (3.5-5.7); Albumin/Globulin Ratio 1.3 (1.1-2.2); Alkaline Phosphatase 85 Units/L (34-104); Aspartate Amino Transferase 16 Units/L (13-39); BUN/Creatinine Ratio 21 (6-26); Bilirubin,Total 0.9 mg/dL (0.3-1.0); Blood Urea Nitrogen 18 mg/dL (8-23); Calcium 9.4 mg/dL (8.6-10.3); Carbon Dioxide 27 mEq/L (23-29); Chloride 99 mEq/L (98-107); Glucose 222 mg/dL (70-105); Osmolality,Calculated 287 (280-300); Potassium 4.1 mEq/L (3.5-5.1); Sodium 134 mEq/L (136-145); Total Protein 6.8 g/dL (6.4-8.9); eGFR For African Americans > 60 (> 60); eGFR For Non-African Americans > 60 (> 60)
[2020-01-16] MEDS: Aspirin Enteric Coated 81 MG Tablet PO SCH (08:09)
[2020-01-16] MEDS: FLUoxetine 20 MG CAPSULE PO SCH (08:09)
[2020-01-16] MEDS: Cholecalciferol (D-3) 1,000 UNIT (25MCG) TABLET PO SCH (08:09)
[2020-01-16] MEDS: Pregabalin 75 MG CAPSULE PO SCH ×2 (08:09→20:38)
[2020-01-16] MEDS: Insulin LISPRO 300 UNITS/3 ML VIAL SQ SCH ×3 (08:10→16:17)
[2020-01-16] MEDS: Acetaminophen 325 MG TABLET PO PRN (16:17)
[2020-01-16] MEDS: levoFLOXacin 750 MG/150 ML 750 MG/150 ML BAG IVPB SCH (18:00)
[2020-01-16] MEDS: 0.9 % Sodium Chloride 1,000 ML IVC SCH (19:48)
[2020-01-16] MEDS: Melatonin 3 MG TABLET PO SCH (20:38)
[2020-01-16] MEDS ORDERED: Insulin LISPRO 300 UNITS/3 ML VIAL SQ SCH (21:00)
[2020-01-17 02:59] LABS: Basophils # 0.2 K/mcL (0.0-0.2); Basophils % 1.1 %; Eosinophils # 0.3 K/mcL (0.0-0.6); Eosinophils % 2.4 %; Hematocrit 37.6 % (37.5-50.1); Hemoglobin 12.2 g/dL (12.9-16.9); Immature Granulocytes % 0.8 % (0-4); Lymphocytes # 2.5 K/mcL (0.6-4.6); Lymphocytes % 18.8 %; Mean Corpuscular HGB Conc 32.4 g/dL (31.6-35.5); Mean Corpuscular Hemoglobin 27.5 pg (28.0-33.3); Mean Corpuscular Volume 84.9 fL (83.0-100.0); Mean Platelet Volume 12.5 fL (9.4-12.4); Monocytes # 1.3 K/mcL (0.0-1.3); Monocytes % 9.8 %; Neutrophils # 9.1 K/mcL (1.6-8.9); Platelet Count 225 K/mcL (140-400); Red Blood Count 4.43 M/mcL (4.19-5.50); Red Cell Distribution Width 14.1 % (11.5-14.5); Segmented Neutrophils % 67.1 %; White Blood Count 13.5 K/mcL (4.3-11.1)
[2020-01-17] MEDS: *HR* Heparin 5,000 UNIT/ML VIAL SQ SCH (06:21)
[2020-01-17] MEDS: Insulin LISPRO 300 UNITS/3 ML VIAL SQ SCH ×2 (08:30→12:09)
[2020-01-17] MEDS: FLUoxetine 20 MG CAPSULE PO SCH (08:31)
[2020-01-17] MEDS: Cholecalciferol (D-3) 1,000 UNIT (25MCG) TABLET PO SCH (08:31)
[2020-01-17] MEDS: Aspirin Enteric Coated 81 MG Tablet PO SCH (08:31)
[2020-01-17] MEDS: Pregabalin 75 MG CAPSULE PO SCH (08:31)
[2020-01-17 15:21] VITALS: BP 145/90
== END 2020-01-17 12:51 | disposition home or self-care (01) | DRG 871 ==
LOC: 2ANU 15:52 → EMEROOARM 15:52 → 2ANU 18:30 → SUATTDRO 01-15 14:42
PROVIDERS: ADMIT Internal Medicine; ATTEND Internal Medicine

== ENCOUNTER 2022-07-26 17:55 | Inpatient (IN) ==
[2022-07-26] MEDS ORDERED: Iopamidol - 370 500 ML MLS IVP ONE (18:15)
[2022-07-26] MEDS ORDERED: cefTRIAXone 1,000 MG in 0.9 % Sodium Chloride 10 ML IVP ONE (18:29)
[2022-07-26] MEDS ORDERED: Doxycycline 100 MG CAPSULE PO ONE (18:29)
[2022-07-26 18:30] LABS: ABG Base Excess 0 mEq/L (-2 to 3); ABG Chloride 104 mEq/L (98-107); ABG Glucose 176 mg/dL (60-95); ABG HCO3 24 mEq/L (21-27); ABG Ionized Calcium 1.22 mmol/L (1.15-1.35); ABG Oxygen Saturation 98 % (95-98); ABG PCO2 36 mmHg (35-45); ABG PH 7.43 pH Units (7.32-7.45); ABG PO2 103 mmHg (85-104); ABG TCO2 25 mEq/L (20-26)
[2022-07-26 19:30] LABS: Basophils # 0.2 K/mcL (0.0-0.2); Basophils % 1.2 %; Eosinophils # 0.3 K/mcL (0.0-0.6); Eosinophils % 1.7 %; Hematocrit 42.8 % (37.5-50.1); Hemoglobin 13.7 g/dL (12.9-16.9); Immature Granulocytes % 0.8 % (0-4); Lymphocytes # 3.8 K/mcL (0.6-4.6); Lymphocytes % 19.9 %; Mean Corpuscular Hemoglobin 28.1 pg (28.0-33.3); Mean Corpuscular Volume 87.9 fL (83.0-100.0); Mean Platelet Volume 12.6 fL (9.4-12.4); Monocytes # 1.4 K/mcL (0.0-1.3); Monocytes % 7.4 %; Neutrophils # 13.3 K/mcL (1.6-8.9); Platelet Count 231 K/mcL (140-400); Red Blood Count 4.87 M/mcL (4.19-5.50); Red Cell Distribution Width 14.9 % (11.5-14.5); White Blood Count 19.3 K/mcL (4.3-11.1)
[2022-07-26 19:40] LABS: INR 1.3; Prothrombin Time 14.4 Seconds (9.4-12.1)
[2022-07-26 19:41] LABS: BUN/Creatinine Ratio 32 (6-26); Blood Urea Nitrogen 25 mg/dL (8-23); Calcium 9.4 mg/dL (8.6-10.3); Carbon Dioxide 26 mEq/L (23-29); Chloride 102 mEq/L (98-107); Glucose 165 mg/dL (70-105); Osmolality,Calculated 294 (280-300); Potassium 3.6 mEq/L (3.5-5.1); Sodium 138 mEq/L (136-145); Troponin I 0.03 ng/mL (< 0.04)
[2022-07-26] MEDS ORDERED: Ondansetron 4 MG/2 ML VIAL IVP PRN (22:54)
[2022-07-26] MEDS ORDERED: Naloxone 0.4 MG/ML INJ IVP PRN (22:54)
[2022-07-26] MEDS ORDERED: Saline Nasal Spray 44 ML BOTTLE NS PRN (22:58)
[2022-07-26] MEDS ORDERED: Saliva Stimulant 44.3ml BOTTLE PO PRN (22:58)
[2022-07-27] MEDS ORDERED: Furosemide 20 MG/2 ML VIAL IVP ONE (03:09)
[2022-07-27] MEDS ORDERED: *HR* Dextrose 50 % in Water (Syg) 50 ML SYRINGE IVP PRN (03:31)
[2022-07-27] MEDS ORDERED: D5% in Water 1,000 ML IVC PRN (03:31)
[2022-07-27] MEDS ORDERED: Dextrose Gel 15 GM/37.5 ML TUBE PO PRN ×2 (03:31)
[2022-07-27 04:03] LABS: Basophils # 0.1 K/mcL (0.0-0.2); Basophils % 0.5 %; Hematocrit 40.6 % (37.5-50.1); Hemoglobin 12.9 g/dL (12.9-16.9); Immature Granulocytes % 0.8 % (0-4); Lymphocytes # 1.5 K/mcL (0.6-4.6); Lymphocytes % 9.8 %; Mean Corpuscular HGB Conc 31.8 g/dL (31.6-35.5); Mean Corpuscular Hemoglobin 27.9 pg (28.0-33.3); Mean Corpuscular Volume 87.7 fL (83.0-100.0); Mean Platelet Volume 12.6 fL (9.4-12.4); Monocytes # 0.3 K/mcL (0.0-1.3); Monocytes % 1.8 %; Neutrophils # 13.3 K/mcL (1.6-8.9); Platelet Count 227 K/mcL (140-400); Red Blood Count 4.63 M/mcL (4.19-5.50); Segmented Neutrophils % 87.1 %; White Blood Count 15.2 K/mcL (4.3-11.1)
[2022-07-27 04:15] LABS: INR 1.2; Prothrombin Time 13.5 Seconds (9.4-12.1)
[2022-07-27 04:18] LABS: Activated Partial Thrombo Time 32.5 Seconds (26.0-36.0)
[2022-07-27 04:25] LABS: Estimated Average Glucose 186 mg/dl; Hemoglobin A1C 8.1 %; Lactate Dehydrogenase 275 Units/L (140-271)
[2022-07-27 04:27] LABS: Alanine Aminotransferase 11 Units/L (7-52); Albumin 4.1 g/dL (3.5-5.7); Albumin/Globulin Ratio 1.5 (1.1-2.2); Alkaline Phosphatase 68 Units/L (34-104); Aspartate Amino Transferase 10 Units/L (13-39); BUN/Creatinine Ratio 32 (6-26); Bilirubin,Total 0.8 mg/dL (0.3-1.0); Blood Urea Nitrogen 26 mg/dL (8-23); C-Reactive Protein 53 mg/L (Less than 10); Calcium 9.4 mg/dL (8.6-10.3); Carbon Dioxide 22 mEq/L (23-29); Chloride 102 mEq/L (98-107); Globulin 2.7 g/dL (2.4-3.5); Glucose 394 mg/dL (70-105); Magnesium 1.9 mg/dL (1.6-2.6); Osmolality,Calculated 301 (280-300); Potassium 4.2 mEq/L (3.5-5.1); Sodium 135 mEq/L (136-145); Total Protein 6.8 g/dL (6.4-8.9)
[2022-07-27] MEDS: Ipratropium 1 PUFF INHALER IH SCH ×4 (04:27→22:59)
[2022-07-27 04:36] LABS: Ferritin 104 ng/mL (20-250)
[2022-07-27] MEDS: *HR* Enoxaparin 40 MG/0.4 ML SYRINGE SQ SCH (06:01)
[2022-07-27] MEDS ORDERED: Remdesivir 200 MG in 0.9 % Sodium Chloride 100 ML IVPB ONE (06:48)
[2022-07-27] MEDS ORDERED: Azithromycin 500 MG in 0.9 % Sodium Chloride 250 ML IVPB SCH (08:00)
[2022-07-27] MEDS: Furosemide 20 MG/2 ML VIAL IVP SCH (08:06)
[2022-07-27] MEDS: Lactobacillus 1 EACH CAP.SPRINK PO SCH ×2 (08:06→20:03)
[2022-07-27] MEDS: Multivit/Ca/Min/Fe/FA 1 TAB TABLET PO SCH (08:07)
[2022-07-27] MEDS: Aspirin Enteric Coated 81 MG Tablet PO SCH (08:07)
[2022-07-27] MEDS: Insulin LISPRO 300 UNITS/3 ML VIAL SUBQ SCH ×3 (08:15→17:40)
[2022-07-27] MEDS ORDERED: Chlorhexidine Rinse 15 ML MOUTHWASH MM SCH (09:00)
[2022-07-27] MEDS ORDERED: Artificial Tears SOLN 15 ML BOTTLE BOTH EYES SCH (09:00)
[2022-07-27] MEDS ORDERED: Insulin DETEMIR 100 UNIT/ML X5UNITS SUBQ SCH (09:00)
[2022-07-27] MEDS ORDERED: cefTRIAXone 1,000 MG in 0.9 % Sodium Chloride Mini Bag 100 ML IVPB SCH (09:00)
[2022-07-27] MEDS: Insulin DETEMIR 100 UNIT/ML X5UNITS SUBQ SCH ×2 (09:44→20:26)
[2022-07-27] MEDS: levoFLOXacin 750 MG/150 ML 750 MG/150 ML BAG IVPB SCH (09:46)
[2022-07-27] MEDS: Budesonide/Formoterol 160/4.5 1 PUFF INH IH SCH ×2 (10:08→23:00)
[2022-07-27] MEDS: Melatonin 3 MG TABLET PO PRN (21:49)
[2022-07-28 02:59] LABS: Hematocrit 37.8 % (37.5-50.1); Hemoglobin 12.2 g/dL (12.9-16.9); Mean Corpuscular HGB Conc 32.3 g/dL (31.6-35.5); Mean Corpuscular Volume 86.7 fL (83.0-100.0); Mean Platelet Volume 12.2 fL (9.4-12.4); Platelet Count 223 K/mcL (140-400); Red Blood Count 4.36 M/mcL (4.19-5.50); Red Cell Distribution Width 14.6 % (11.5-14.5); White Blood Count 20.3 K/mcL (4.3-11.1)
[2022-07-28 03:21] LABS: Alanine Aminotransferase 10 Units/L (7-52); Albumin 3.9 g/dL (3.5-5.7); Albumin/Globulin Ratio 1.6 (1.1-2.2); Alkaline Phosphatase 60 Units/L (34-104); Aspartate Amino Transferase 10 Units/L (13-39); BUN/Creatinine Ratio 35 (6-26); Bilirubin,Direct 0.2 mg/dL (0.0-0.2); Bilirubin,Indirect 0.5 mg/dL (0.0-1.0); Bilirubin,Total 0.7 mg/dL (0.3-1.0); Blood Urea Nitrogen 30 mg/dL (8-23); Calcium 9.2 mg/dL (8.6-10.3); Carbon Dioxide 26 mEq/L (23-29); Chloride 101 mEq/L (98-107); Globulin 2.5 g/dL (2.4-3.5); Glucose 225 mg/dL (70-105); Osmolality,Calculated 295 (280-300); Potassium 4.1 mEq/L (3.5-5.1); Sodium 136 mEq/L (136-145); Total Protein 6.4 g/dL (6.4-8.9)
[2022-07-28] MEDS: Ipratropium 1 PUFF INHALER IH SCH ×4 (04:33→22:54)
[2022-07-28] MEDS: *HR* Enoxaparin 40 MG/0.4 ML SYRINGE SQ SCH (05:18)
[2022-07-28] MEDS: Lactobacillus 1 EACH CAP.SPRINK PO SCH ×2 (08:51→19:59)
[2022-07-28] MEDS: Aspirin Enteric Coated 81 MG Tablet PO SCH (08:51)
[2022-07-28] MEDS: Furosemide 20 MG/2 ML VIAL IVP SCH (08:53)
[2022-07-28] MEDS: levoFLOXacin 750 MG/150 ML 750 MG/150 ML BAG IVPB SCH (08:53)
[2022-07-28] MEDS: Multivit/Ca/Min/Fe/FA 1 TAB TABLET PO SCH (09:07)
[2022-07-28] MEDS: Remdesivir 100 MG in 0.9 % Sodium Chloride 100 ML IVPB SCH (09:07)
[2022-07-28] MEDS: Insulin LISPRO 300 UNITS/3 ML VIAL SUBQ SCH ×3 (09:08→17:34)
[2022-07-28] MEDS: Budesonide/Formoterol 160/4.5 1 PUFF INH IH SCH ×2 (09:32→20:02)
[2022-07-28] MEDS: Insulin DETEMIR 100 UNIT/ML X5UNITS SUBQ SCH ×2 (10:03→19:59)
[2022-07-28] MEDS: Acetaminophen 325 MG TABLET PO PRN (19:33)
[2022-07-28] MEDS: Pregabalin 50 MG CAPSULE PO SCH (19:59)
[2022-07-28] MEDS: Latanoprost 2.5 ML BOTTLE BOTH EYES SCH (19:59)
[2022-07-28] MEDS: Patient Taking Own Medication 1 EACH OP SCH (20:00)
[2022-07-28] MEDS ORDERED: Insulin DETEMIR 100 UNIT/ML X5UNITS SUBQ SCH (21:00)
[2022-07-28] MEDS ORDERED: Budesonide/Formoterol 160/4.5 1 PUFF INH IH SCH (21:00)
[2022-07-28 21:30] LABS: Adenovirus Not Detected (Not Detect); Bordetella Pertussis Not Detected (Not Detect); Chlamydophila pneumoniae Not Detected (Not Detect); Coronavirus 229E Not Detected (Not Detect); Coronavirus HKU1 Not Detected (Not Detect); Coronavirus NL63 Not Detected (Not Detect); Coronavirus OC43 Not Detected (Not Detect); Human Metapneumovirus Not Detected (Not Detect); Human Rhinovirus/Enterovirus Not Detected (Not Detect); Influenza A Subtype 2009 H1 Not Detected (Not Detect); Influenza B Not Detected (Not Detect); Mycoplasma pneumoniae Not Detected (Not Detect); Parainfluenza Virus 1 Not Detected (Not Detect); Parainfluenza Virus 2 Not Detected (Not Detect); Parainfluenza Virus 3 Not Detected (Not Detect); Parainfluenza Virus 4 Not Detected (Not Detect); Respiratory Syncytial Virus Not Detected (Not Detect); SARS-CoV-2 Not Detected (Not Detect)
[2022-07-28] MEDS: Melatonin 3 MG TABLET PO PRN (22:03)
[2022-07-29 02:26] LABS: Basophils # 0.1 K/mcL (0.0-0.2); Basophils % 0.3 %; Eosinophils # 0.1 K/mcL (0.0-0.6); Eosinophils % 0.3 %; Hematocrit 37.7 % (37.5-50.1); Hemoglobin 12.2 g/dL (12.9-16.9); Immature Granulocytes % 0.9 % (0-4); Lymphocytes # 2.7 K/mcL (0.6-4.6); Lymphocytes % 14.5 %; Mean Corpuscular HGB Conc 32.4 g/dL (31.6-35.5); Mean Corpuscular Hemoglobin 27.9 pg (28.0-33.3); Mean Corpuscular Volume 86.1 fL (83.0-100.0); Mean Platelet Volume 12.3 fL (9.4-12.4); Monocytes # 1.1 K/mcL (0.0-1.3); Neutrophils # 14.3 K/mcL (1.6-8.9); Platelet Count 239 K/mcL (140-400); Red Blood Count 4.38 M/mcL (4.19-5.50); Red Cell Distribution Width 14.5 % (11.5-14.5); White Blood Count 18.4 K/mcL (4.3-11.1)
[2022-07-29 03:12] LABS: Albumin 3.9 g/dL (3.5-5.7); Albumin/Globulin Ratio 1.5 (1.1-2.2); Bilirubin,Direct 0.1 mg/dL (0.0-0.2); Bilirubin,Indirect 0.5 mg/dL (0.0-1.0); Bilirubin,Total 0.6 mg/dL (0.3-1.0); Calcium 8.9 mg/dL (8.6-10.3); Globulin 2.6 g/dL (2.4-3.5); Total Protein 6.5 g/dL (6.4-8.9)
[2022-07-29] MEDS: Ipratropium 1 PUFF INHALER IH SCH ×4 (04:30→21:33)
[2022-07-29] MEDS: *HR* Enoxaparin 40 MG/0.4 ML SYRINGE SQ SCH (05:13)
[2022-07-29] MEDS: Multivit/Ca/Min/Fe/FA 1 TAB TABLET PO SCH (08:39)
[2022-07-29] MEDS: Pregabalin 50 MG CAPSULE PO SCH ×2 (08:39→21:34)
[2022-07-29] MEDS: lisinopriL 20 MG TABLET PO SCH (08:39)
[2022-07-29] MEDS: FLUoxetine 20 MG CAPSULE PO SCH (08:40)
[2022-07-29] MEDS: Furosemide 20 MG TABLET PO SCH (08:40)
[2022-07-29] MEDS: Aspirin Enteric Coated 81 MG Tablet PO SCH (08:40)
[2022-07-29] MEDS: Furosemide 20 MG/2 ML VIAL IVP SCH (08:42)
[2022-07-29] MEDS: Patient Taking Own Medication 1 EACH OP SCH (08:43)
[2022-07-29] MEDS: Lactobacillus 1 EACH CAP.SPRINK PO SCH ×2 (08:44→21:35)
[2022-07-29] MEDS: Remdesivir 100 MG in 0.9 % Sodium Chloride 100 ML IVPB SCH (08:48)
[2022-07-29] MEDS: levoFLOXacin 750 MG/150 ML 750 MG/150 ML BAG IVPB SCH (08:50)
[2022-07-29] MEDS: Insulin LISPRO 300 UNITS/3 ML VIAL SUBQ SCH ×3 (08:57→16:37)
[2022-07-29] MEDS: Insulin DETEMIR 100 UNIT/ML X5UNITS SUBQ SCH ×2 (08:58→21:35)
[2022-07-29] MEDS: Budesonide/Formoterol 160/4.5 1 PUFF INH IH SCH ×2 (09:38→21:33)
[2022-07-29] MEDS: Acetaminophen 325 MG TABLET PO PRN ×2 (15:10→23:14)
[2022-07-29] MEDS: Artificial Tears SOLN 15 ML BOTTLE BOTH EYES SCH (21:35)
[2022-07-29] MEDS: Latanoprost 2.5 ML BOTTLE BOTH EYES SCH (21:38)
[2022-07-29] MEDS: Melatonin 3 MG TABLET PO PRN (21:41)
[2022-07-30] MEDS: Ipratropium 1 PUFF INHALER IH SCH ×4 (03:50→21:30)
[2022-07-30] MEDS: Acetaminophen 325 MG TABLET PO PRN ×2 (05:59→21:16)
[2022-07-30] MEDS: *HR* Enoxaparin 40 MG/0.4 ML SYRINGE SQ SCH (06:00)
[2022-07-30] MEDS: Pregabalin 50 MG CAPSULE PO SCH ×2 (10:18→21:15)
[2022-07-30] MEDS: Lactobacillus 1 EACH CAP.SPRINK PO SCH ×2 (10:18→21:15)
[2022-07-30] MEDS: FLUoxetine 20 MG CAPSULE PO SCH (10:19)
[2022-07-30] MEDS: Furosemide 20 MG TABLET PO SCH (10:19)
[2022-07-30] MEDS: lisinopriL 20 MG TABLET PO SCH (10:19)
[2022-07-30] MEDS: Multivit/Ca/Min/Fe/FA 1 TAB TABLET PO SCH (10:19)
[2022-07-30] MEDS: Aspirin Enteric Coated 81 MG Tablet PO SCH (10:19)
[2022-07-30] MEDS: Insulin LISPRO 300 UNITS/3 ML VIAL SUBQ SCH ×3 (10:20→17:43)
[2022-07-30] MEDS: Artificial Tears SOLN 15 ML BOTTLE BOTH EYES SCH ×2 (10:20→21:18)
[2022-07-30] MEDS: Insulin DETEMIR 100 UNIT/ML X5UNITS SUBQ SCH ×2 (10:20→21:16)
[2022-07-30] MEDS: Budesonide/Formoterol 160/4.5 1 PUFF INH IH SCH ×2 (10:46→21:30)
[2022-07-30] MEDS: Furosemide 20 MG/2 ML VIAL IVP SCH (13:03)
[2022-07-30] MEDS: levoFLOXacin 750 MG/150 ML 750 MG/150 ML BAG IVPB SCH (13:04)
[2022-07-30] MEDS: Melatonin 3 MG TABLET PO PRN (21:15)
[2022-07-30] MEDS: Latanoprost 2.5 ML BOTTLE BOTH EYES SCH (21:18)
[2022-07-31 01:32] LABS: Basophils # 0.2 K/mcL (0.0-0.2); Basophils % 1.1 %; Eosinophils # 0.7 K/mcL (0.0-0.6); Eosinophils % 3.5 %; Hematocrit 38.7 % (37.5-50.1); Hemoglobin 12.5 g/dL (12.9-16.9); Immature Granulocytes % 1.2 % (0-4); Lymphocytes # 4.9 K/mcL (0.6-4.6); Lymphocytes % 25.2 %; Mean Corpuscular HGB Conc 32.3 g/dL (31.6-35.5); Mean Corpuscular Hemoglobin 27.9 pg (28.0-33.3); Mean Corpuscular Volume 86.4 fL (83.0-100.0); Mean Platelet Volume 12.5 fL (9.4-12.4); Monocytes # 1.3 K/mcL (0.0-1.3); Monocytes % 6.6 %; Neutrophils # 12.2 K/mcL (1.6-8.9); Platelet Count 231 K/mcL (140-400); Red Blood Count 4.48 M/mcL (4.19-5.50); Red Cell Distribution Width 14.7 % (11.5-14.5); Segmented Neutrophils % 62.4 %; White Blood Count 19.6 K/mcL (4.3-11.1)
[2022-07-31 01:51] LABS: Alanine Aminotransferase 14 Units/L (7-52); Albumin 3.7 g/dL (3.5-5.7); Albumin/Globulin Ratio 1.5 (1.1-2.2); Alkaline Phosphatase 69 Units/L (34-104); Aspartate Amino Transferase 11 Units/L (13-39); BUN/Creatinine Ratio 35 (6-26); Bilirubin,Total 0.5 mg/dL (0.3-1.0); Blood Urea Nitrogen 30 mg/dL (8-23); Calcium 8.7 mg/dL (8.6-10.3); Carbon Dioxide 28 mEq/L (23-29); Chloride 101 mEq/L (98-107); Globulin 2.4 g/dL (2.4-3.5); Glucose 278 mg/dL (70-105); Osmolality,Calculated 294 (280-300); Sodium 134 mEq/L (136-145); Total Protein 6.1 g/dL (6.4-8.9)
[2022-07-31] MEDS: Ipratropium 1 PUFF INHALER IH SCH ×4 (03:51→22:55)
[2022-07-31] MEDS: *HR* Enoxaparin 40 MG/0.4 ML SYRINGE SQ SCH (05:21)
[2022-07-31] MEDS: Insulin LISPRO 300 UNITS/3 ML VIAL SUBQ SCH ×3 (08:27→16:47)
[2022-07-31] MEDS: Insulin DETEMIR 100 UNIT/ML X5UNITS SUBQ SCH ×2 (08:29→20:07)
[2022-07-31] MEDS: Artificial Tears SOLN 15 ML BOTTLE BOTH EYES SCH ×2 (08:29→20:28)
[2022-07-31] MEDS: Multivit/Ca/Min/Fe/FA 1 TAB TABLET PO SCH (08:30)
[2022-07-31] MEDS: FLUoxetine 20 MG CAPSULE PO SCH (08:30)
[2022-07-31] MEDS: Lactobacillus 1 EACH CAP.SPRINK PO SCH ×2 (08:31→20:07)
[2022-07-31] MEDS: Furosemide 20 MG TABLET PO SCH (08:31)
[2022-07-31] MEDS: Aspirin Enteric Coated 81 MG Tablet PO SCH (08:31)
[2022-07-31] MEDS: Pregabalin 50 MG CAPSULE PO SCH ×2 (08:31→20:07)
[2022-07-31] MEDS: predniSONE 20 MG TABLET PO SCH (08:31)
[2022-07-31] MEDS: lisinopriL 20 MG TABLET PO SCH (08:31)
[2022-07-31] MEDS: Budesonide/Formoterol 160/4.5 1 PUFF INH IH SCH ×2 (09:42→22:55)
[2022-07-31] MEDS: *HR* HYDROcodone/Acet 5/325 mg TABLET PO PRN (20:06)
[2022-07-31] MEDS: Melatonin 3 MG TABLET PO PRN (20:07)
[2022-07-31] MEDS: Latanoprost 2.5 ML BOTTLE BOTH EYES SCH (20:08)
[2022-08-01] MEDS: Ipratropium 1 PUFF INHALER IH SCH ×4 (05:00→21:16)
[2022-08-01] MEDS: *HR* Enoxaparin 40 MG/0.4 ML SYRINGE SQ SCH (06:01)
[2022-08-01] MEDS: Insulin LISPRO 300 UNITS/3 ML VIAL SUBQ SCH ×3 (08:30→16:51)
[2022-08-01] MEDS: Insulin DETEMIR 100 UNIT/ML X5UNITS SUBQ SCH ×2 (08:32→21:22)
[2022-08-01] MEDS: FLUoxetine 20 MG CAPSULE PO SCH (08:32)
[2022-08-01] MEDS: Aspirin Enteric Coated 81 MG Tablet PO SCH (08:32)
[2022-08-01] MEDS: Pregabalin 50 MG CAPSULE PO SCH ×2 (08:33→21:23)
[2022-08-01] MEDS: predniSONE 20 MG TABLET PO SCH (08:33)
[2022-08-01] MEDS: Furosemide 20 MG TABLET PO SCH (08:33)
[2022-08-01] MEDS: lisinopriL 20 MG TABLET PO SCH (08:33)
[2022-08-01] MEDS: Lactobacillus 1 EACH CAP.SPRINK PO SCH ×2 (08:33→21:24)
[2022-08-01] MEDS: Multivit/Ca/Min/Fe/FA 1 TAB TABLET PO SCH (08:33)
[2022-08-01] MEDS: Artificial Tears SOLN 15 ML BOTTLE BOTH EYES SCH ×2 (08:35→21:24)
[2022-08-01] MEDS: Budesonide/Formoterol 160/4.5 1 PUFF INH IH SCH ×2 (10:35→21:16)
[2022-08-01] MEDS: Latanoprost 2.5 ML BOTTLE BOTH EYES SCH (21:21)
[2022-08-01] MEDS: Acetaminophen 325 MG TABLET PO PRN (21:23)
[2022-08-01] MEDS: Melatonin 3 MG TABLET PO PRN (21:24)
[2022-08-02] MEDS: Ipratropium 1 PUFF INHALER IH SCH ×4 (04:35→22:27)
[2022-08-02] MEDS: *HR* Enoxaparin 40 MG/0.4 ML SYRINGE SQ SCH (05:25)
[2022-08-02] MEDS: Pregabalin 50 MG CAPSULE PO SCH ×2 (08:01→20:56)
[2022-08-02] MEDS: FLUoxetine 20 MG CAPSULE PO SCH (08:01)
[2022-08-02] MEDS: Lactobacillus 1 EACH CAP.SPRINK PO SCH ×2 (08:01→20:56)
[2022-08-02] MEDS: Insulin DETEMIR 100 UNIT/ML X5UNITS SUBQ SCH ×2 (08:01→20:57)
[2022-08-02] MEDS: predniSONE 20 MG TABLET PO SCH (08:01)
[2022-08-02] MEDS: Furosemide 20 MG TABLET PO SCH (08:02)
[2022-08-02] MEDS: Aspirin Enteric Coated 81 MG Tablet PO SCH (08:02)
[2022-08-02] MEDS: lisinopriL 20 MG TABLET PO SCH (08:02)
[2022-08-02] MEDS: Multivit/Ca/Min/Fe/FA 1 TAB TABLET PO SCH (08:03)
[2022-08-02] MEDS: Insulin LISPRO 300 UNITS/3 ML VIAL SUBQ SCH ×3 (08:04→16:20)
[2022-08-02] MEDS: Artificial Tears SOLN 15 ML BOTTLE BOTH EYES SCH ×2 (08:04→20:56)
[2022-08-02] MEDS: Budesonide/Formoterol 160/4.5 1 PUFF INH IH SCH ×2 (09:38→22:27)
[2022-08-02] MEDS: Latanoprost 2.5 ML BOTTLE BOTH EYES SCH (20:57)
[2022-08-02] MEDS: Acetaminophen 325 MG TABLET PO PRN (21:23)
[2022-08-02] MEDS: Melatonin 3 MG TABLET PO PRN (21:23)
[2022-08-03] MEDS: Ipratropium 1 PUFF INHALER IH SCH ×4 (03:05→22:38)
[2022-08-03] MEDS: *HR* Enoxaparin 40 MG/0.4 ML SYRINGE SQ SCH (05:39)
[2022-08-03] MEDS: lisinopriL 20 MG TABLET PO SCH (09:31)
[2022-08-03] MEDS: Artificial Tears SOLN 15 ML BOTTLE BOTH EYES SCH ×2 (09:31→20:35)
[2022-08-03] MEDS: Aspirin Enteric Coated 81 MG Tablet PO SCH (09:31)
[2022-08-03] MEDS: Furosemide 20 MG TABLET PO SCH (09:31)
[2022-08-03] MEDS: FLUoxetine 20 MG CAPSULE PO SCH (09:31)
[2022-08-03] MEDS: Pregabalin 50 MG CAPSULE PO SCH ×2 (09:31→20:32)
[2022-08-03] MEDS: Insulin LISPRO 300 UNITS/3 ML VIAL SUBQ SCH ×3 (09:31→17:13)
[2022-08-03] MEDS: Lactobacillus 1 EACH CAP.SPRINK PO SCH ×2 (09:31→20:33)
[2022-08-03] MEDS: Insulin DETEMIR 100 UNIT/ML X5UNITS SUBQ SCH ×2 (09:32→20:34)
[2022-08-03] MEDS: predniSONE 20 MG TABLET PO SCH (09:36)
[2022-08-03] MEDS: Acetaminophen 325 MG TABLET PO PRN ×2 (09:36→20:34)
[2022-08-03] MEDS: Multivit/Ca/Min/Fe/FA 1 TAB TABLET PO SCH (09:36)
[2022-08-03] MEDS: Budesonide/Formoterol 160/4.5 1 PUFF INH IH SCH ×2 (10:05→22:39)
[2022-08-03] MEDS: Latanoprost 2.5 ML BOTTLE BOTH EYES SCH (20:33)
[2022-08-03] MEDS: Melatonin 3 MG TABLET PO PRN (20:34)
[2022-08-04] MEDS: Ipratropium 1 PUFF INHALER IH SCH ×4 (03:50→22:34)
[2022-08-04] MEDS: *HR* Enoxaparin 40 MG/0.4 ML SYRINGE SQ SCH (05:45)
[2022-08-04] MEDS: Furosemide 20 MG TABLET PO SCH (09:03)
[2022-08-04] MEDS: Multivit/Ca/Min/Fe/FA 1 TAB TABLET PO SCH (09:04)
[2022-08-04] MEDS: FLUoxetine 20 MG CAPSULE PO SCH (09:04)
[2022-08-04] MEDS: predniSONE 20 MG TABLET PO SCH (09:04)
[2022-08-04] MEDS: lisinopriL 20 MG TABLET PO SCH (09:04)
[2022-08-04] MEDS: Lactobacillus 1 EACH CAP.SPRINK PO SCH ×2 (09:05→21:30)
[2022-08-04] MEDS: Aspirin Enteric Coated 81 MG Tablet PO SCH (09:05)
[2022-08-04] MEDS: Pregabalin 50 MG CAPSULE PO SCH ×2 (09:05→21:30)
[2022-08-04] MEDS: Insulin DETEMIR 100 UNIT/ML X5UNITS SUBQ SCH ×2 (09:05→21:30)
[2022-08-04] MEDS: Insulin LISPRO 300 UNITS/3 ML VIAL SUBQ SCH ×3 (09:08→17:23)
[2022-08-04] MEDS: Artificial Tears SOLN 15 ML BOTTLE BOTH EYES SCH ×2 (09:10→21:30)
[2022-08-04] MEDS: Budesonide/Formoterol 160/4.5 1 PUFF INH IH SCH ×2 (10:42→22:34)
[2022-08-04] MEDS: Nystatin SUSP 5 ML UD.LIQ PO SCH ×2 (17:23→21:30)
[2022-08-04] MEDS: *HR* HYDROcodone/Acet 5/325 mg TABLET PO PRN (21:30)
[2022-08-04] MEDS: Latanoprost 2.5 ML BOTTLE BOTH EYES SCH (21:30)
[2022-08-05] MEDS: Ipratropium 1 PUFF INHALER IH SCH ×2 (03:53→10:02)
[2022-08-05] MEDS: *HR* Enoxaparin 40 MG/0.4 ML SYRINGE SQ SCH (05:28)
[2022-08-05] MEDS: Lactobacillus 1 EACH CAP.SPRINK PO SCH (07:38)
[2022-08-05] MEDS: Insulin LISPRO 300 UNITS/3 ML VIAL SUBQ SCH ×2 (07:38→11:38)
[2022-08-05] MEDS: lisinopriL 20 MG TABLET PO SCH (07:38)
[2022-08-05] MEDS: predniSONE 20 MG TABLET PO SCH (07:38)
[2022-08-05] MEDS: Nystatin SUSP 5 ML UD.LIQ PO SCH ×2 (07:38→13:16)
[2022-08-05] MEDS: Furosemide 20 MG TABLET PO SCH (07:38)
[2022-08-05] MEDS: Aspirin Enteric Coated 81 MG Tablet PO SCH (07:39)
[2022-08-05] MEDS: FLUoxetine 20 MG CAPSULE PO SCH (07:39)
[2022-08-05] MEDS: Pregabalin 50 MG CAPSULE PO SCH (07:39)
[2022-08-05] MEDS: Artificial Tears SOLN 15 ML BOTTLE BOTH EYES SCH (07:39)
[2022-08-05] MEDS: Multivit/Ca/Min/Fe/FA 1 TAB TABLET PO SCH (07:39)
[2022-08-05] MEDS: Insulin DETEMIR 100 UNIT/ML X5UNITS SUBQ SCH (07:39)
[2022-08-05] MEDS: Acetaminophen 325 MG TABLET PO PRN (08:40)
[2022-08-05] MEDS: Budesonide/Formoterol 160/4.5 1 PUFF INH IH SCH (10:02)
[2022-08-05 11:21] VITALS: BP 122/75; PULSE 80; TEMP 97.7; O2SAT 91
== END 2022-08-05 15:00 | DRG 871 ==
LOC: SUATTDRO → EMEROOARM 17:55 → 2NENU 17:55 → SUATTDRO 23:11 → OBSVTOIN 23:11 → 2NENU 07-27 00:30
PROVIDERS: ADMIT Internal Medicine; ATTEND Internal Medicine

== ENCOUNTER 2022-08-31 14:42 | Inpatient (IN) ==
[2022-08-31 15:44] LABS: Basophils # 0.2 K/mcL (0.0-0.2); Basophils % 1.1 %; Eosinophils # 0.3 K/mcL (0.0-0.6); Eosinophils % 1.7 %; Hematocrit 42.3 % (37.5-50.1); Hemoglobin 13.5 g/dL (12.9-16.9); Immature Granulocytes % 0.7 % (0-4); Lymphocytes # 3.3 K/mcL (0.6-4.6); Lymphocytes % 19.6 %; Mean Corpuscular HGB Conc 31.9 g/dL (31.6-35.5); Mean Corpuscular Volume 87.8 fL (83.0-100.0); Mean Platelet Volume 12.6 fL (9.4-12.4); Monocytes % 5.9 %; Neutrophils # 11.8 K/mcL (1.6-8.9); Platelet Count 266 K/mcL (140-400); Red Blood Count 4.82 M/mcL (4.19-5.50); Red Cell Distribution Width 14.8 % (11.5-14.5); White Blood Count 16.6 K/mcL (4.3-11.1)
[2022-08-31] MEDS ORDERED: Aspirin 81 MG TAB.CHEW PO STA (15:48)
[2022-08-31 15:54] LABS: INR 1.2; Prothrombin Time 13.8 Seconds (9.4-12.1)
[2022-08-31 16:00] LABS: BUN/Creatinine Ratio 27 (6-26); Blood Urea Nitrogen 22 mg/dL (8-23); Calcium 9.3 mg/dL (8.6-10.3); Carbon Dioxide 25 mEq/L (23-29); Chloride 104 mEq/L (98-107); Glucose 150 mg/dL (70-105); Osmolality,Calculated 290 (280-300); Potassium 3.9 mEq/L (3.5-5.1); Sodium 137 mEq/L (136-145)
[2022-08-31] MEDS ORDERED: Aspirin 81 MG TAB.CHEW PO SCH (16:00)
[2022-08-31 16:02] LABS: Troponin I < 0.03 ng/mL (< 0.04)
[2022-08-31] MEDS ORDERED: *HR* Heparin 5,000 UNIT/ML VIAL IVP PRN ×2 (17:39)
[2022-08-31] MEDS ORDERED: *HR* Heparin 5,000 UNIT/ML VIAL IVP ONE (17:39)
[2022-08-31] MEDS ORDERED: Heparin 25,000UNIT/250ML 1/2NS 25,000 UNIT/250 ML IV.SOLN IVC SCH (17:45)
[2022-08-31] MEDS ORDERED: Dextrose Gel 15 GM/37.5 ML TUBE PO PRN ×2 (18:01)
[2022-08-31] MEDS ORDERED: *HR* Dextrose 50 % in Water (Syg) 50 ML SYRINGE IVP PRN (18:01)
[2022-08-31] MEDS ORDERED: D5% in Water 1,000 ML IVC PRN (18:01)
[2022-08-31] MEDS ORDERED: Ondansetron 4 MG/2 ML VIAL IVP PRN (18:01)
[2022-08-31] MEDS ORDERED: Naloxone 0.4 MG/ML INJ IVP PRN (18:01)
[2022-08-31 18:03] LABS: Hematocrit 41.1 % (37.5-50.1); Mean Corpuscular HGB Conc 31.6 g/dL (31.6-35.5); Mean Corpuscular Volume 88.4 fL (83.0-100.0); Mean Platelet Volume 12.2 fL (9.4-12.4); Platelet Count 240 K/mcL (140-400); Red Blood Count 4.65 M/mcL (4.19-5.50); Red Cell Distribution Width 14.7 % (11.5-14.5); White Blood Count 14.9 K/mcL (4.3-11.1)
[2022-08-31 18:11] LABS: Heparin anti-factor XA UFH < 0.04 IU/mL (0.30-0.70); INR 1.2; Prothrombin Time 13.4 Seconds (9.4-12.1)
[2022-08-31] MEDS ORDERED: Iopamidol - 370 500 ML MLS IVP ONE (18:23)
[2022-08-31] MEDS ORDERED: Ipratropium/Albuterol Neb 3 ML IH PRN (19:04)
[2022-08-31] MEDS ORDERED: Melatonin 3 MG TABLET PO ONE (21:18)
[2022-08-31] MEDS: Acetaminophen 325 MG TABLET PO PRN (21:28)
[2022-08-31] MEDS: Pregabalin 50 MG CAPSULE PO SCH (21:28)
[2022-08-31] MEDS: Budesonide/Formoterol 160/4.5 1 PUFF INH IH SCH (21:36)
[2022-08-31] MEDS: Insulin LISPRO 300 UNITS/3 ML VIAL SUBQ SCH (22:31)
[2022-09-01 02:31] LABS: Hemoglobin 12.4 g/dL (12.9-16.9); Mean Corpuscular HGB Conc 31.8 g/dL (31.6-35.5); Mean Corpuscular Hemoglobin 27.8 pg (28.0-33.3); Mean Corpuscular Volume 87.4 fL (83.0-100.0); Mean Platelet Volume 12.5 fL (9.4-12.4); Platelet Count 231 K/mcL (140-400); Red Blood Count 4.46 M/mcL (4.19-5.50); Red Cell Distribution Width 14.6 % (11.5-14.5); White Blood Count 17.8 K/mcL (4.3-11.1)
[2022-09-01 02:55] LABS: BUN/Creatinine Ratio 31 (6-26); Blood Urea Nitrogen 24 mg/dL (8-23); Calcium 9.2 mg/dL (8.6-10.3); Carbon Dioxide 26 mEq/L (23-29); Chloride 105 mEq/L (98-107); Chol/HDL Ratio 2.9 (0-4.9); Cholesterol 86 mg/dL (< 200); Glucose 140 mg/dL (70-105); HDL Cholesterol 30 mg/dL (40-59); LDL Cholesterol,Calculated 31 mg/dL (< 100); Magnesium 1.8 mg/dL (1.6-2.6); Osmolality,Calculated 294 (280-300); Potassium 3.6 mEq/L (3.5-5.1); Sodium 139 mEq/L (136-145); Triglycerides 125 mg/dL (< 150); Troponin I < 0.03 ng/mL (< 0.04)
[2022-09-01 03:22] LABS: Adenovirus Not Detected (Not Detect); Bordetella Pertussis Not Detected (Not Detect); Chlamydophila pneumoniae Not Detected (Not Detect); Coronavirus 229E Not Detected (Not Detect); Coronavirus HKU1 Not Detected (Not Detect); Coronavirus NL63 Not Detected (Not Detect); Coronavirus OC43 Not Detected (Not Detect); Human Metapneumovirus Not Detected (Not Detect); Human Rhinovirus/Enterovirus Not Detected (Not Detect); Influenza A Subtype 2009 H1 Not Detected (Not Detect); Influenza B Not Detected (Not Detect); Mycoplasma pneumoniae Not Detected (Not Detect); Parainfluenza Virus 1 Not Detected (Not Detect); Parainfluenza Virus 2 Not Detected (Not Detect); Parainfluenza Virus 3 Not Detected (Not Detect); Parainfluenza Virus 4 Not Detected (Not Detect); Respiratory Syncytial Virus Not Detected (Not Detect); SARS-CoV-2 Not Detected (Not Detect)
[2022-09-01] MEDS ORDERED: Regadenoson 0.4 MG/5 ML SYRINGE IVP ONE (06:41)
[2022-09-01] MEDS: Insulin LISPRO 300 UNITS/3 ML VIAL SUBQ SCH ×4 (09:13→20:21)
[2022-09-01] MEDS: Pregabalin 50 MG CAPSULE PO SCH ×2 (09:22→20:21)
[2022-09-01] MEDS: Aspirin Enteric Coated 81 MG Tablet PO SCH (09:22)
[2022-09-01] MEDS: Budesonide/Formoterol 160/4.5 1 PUFF INH IH SCH ×2 (09:34→19:41)
[2022-09-01] MEDS: cefTRIAXone 1,000 MG in Water for inj. (sterile) 10 ML IVP SCH (14:58)
[2022-09-01] MEDS: Azithromycin 500 MG in 0.9 % Sodium Chloride 250 ML IVPB SCH (14:58)
[2022-09-01] MEDS: *HR* Heparin 5,000 UNIT/ML VIAL SQ SCH (17:19)
[2022-09-01] MEDS ORDERED: Melatonin 3 MG TABLET PO ONE (21:59)
[2022-09-01] MEDS: Latanoprost 2.5 ML BOTTLE BOTH EYES SCH (22:20)
[2022-09-01] MEDS: Acetaminophen 325 MG TABLET PO PRN (22:20)
[2022-09-02 02:07] LABS: Basophils # 0.2 K/mcL (0.0-0.2); Eosinophils # 0.6 K/mcL (0.0-0.6); Eosinophils % 4.1 %; Hematocrit 36.6 % (37.5-50.1); Hemoglobin 11.4 g/dL (12.9-16.9); Immature Granulocytes % 0.8 % (0-4); Lymphocytes # 2.6 K/mcL (0.6-4.6); Mean Corpuscular HGB Conc 31.1 g/dL (31.6-35.5); Mean Corpuscular Hemoglobin 27.9 pg (28.0-33.3); Mean Corpuscular Volume 89.7 fL (83.0-100.0); Mean Platelet Volume 12.7 fL (9.4-12.4); Monocytes % 6.7 %; Neutrophils # 10.9 K/mcL (1.6-8.9); Platelet Count 218 K/mcL (140-400); Red Blood Count 4.08 M/mcL (4.19-5.50); Red Cell Distribution Width 14.6 % (11.5-14.5); Segmented Neutrophils % 70.4 %; White Blood Count 15.5 K/mcL (4.3-11.1)
[2022-09-02 02:23] LABS: BUN/Creatinine Ratio 32 (6-26); Blood Urea Nitrogen 24 mg/dL (8-23); Calcium 8.9 mg/dL (8.6-10.3); Carbon Dioxide 26 mEq/L (23-29); Chloride 106 mEq/L (98-107); Glucose 142 mg/dL (70-105); Magnesium 1.9 mg/dL (1.6-2.6); Osmolality,Calculated 294 (280-300); Phosphorous 3.8 mg/dL (2.7-4.5); Potassium 3.7 mEq/L (3.5-5.1); Sodium 139 mEq/L (136-145)
[2022-09-02] MEDS: *HR* Heparin 5,000 UNIT/ML VIAL SQ SCH ×2 (05:27→17:15)
[2022-09-02] MEDS: Budesonide/Formoterol 160/4.5 1 PUFF INH IH SCH ×2 (07:19→20:20)
[2022-09-02] MEDS: cefTRIAXone 1,000 MG in Water for inj. (sterile) 10 ML IVP SCH (08:51)
[2022-09-02] MEDS: Pregabalin 50 MG CAPSULE PO SCH ×2 (08:51→20:09)
[2022-09-02] MEDS: Aspirin Enteric Coated 81 MG Tablet PO SCH (08:51)
[2022-09-02] MEDS: Insulin LISPRO 300 UNITS/3 ML VIAL SUBQ SCH ×4 (08:55→20:02)
[2022-09-02 10:13] LABS: ABG Base Excess 2 mEq/L (-2 to 3); ABG HCO3 28 mEq/L (21-27); ABG Oxygen Saturation 91 % (95-98); ABG PCO2 45 mmHg (35-45); ABG PO2 61 mmHg (85-104); ABG TCO2 29 mEq/L (20-26)
[2022-09-02] MEDS: Azithromycin 500 MG in 0.9 % Sodium Chloride 250 ML IVPB SCH (13:00)
[2022-09-02] MEDS: Latanoprost 2.5 ML BOTTLE BOTH EYES SCH (20:11)
[2022-09-02] MEDS: Acetaminophen 325 MG TABLET PO PRN (20:12)
[2022-09-02] MEDS ORDERED: Melatonin 3 MG TABLET PO ONE (20:52)
[2022-09-03] MEDS: Acetaminophen 325 MG TABLET PO PRN ×2 (03:58→20:55)
[2022-09-03 04:39] LABS: Basophils # 0.2 K/mcL (0.0-0.2); Basophils % 1.4 %; Eosinophils # 0.6 K/mcL (0.0-0.6); Hemoglobin 11.2 g/dL (12.9-16.9); Immature Granulocytes % 0.8 % (0-4); Lymphocytes # 2.9 K/mcL (0.6-4.6); Lymphocytes % 23.8 %; Mean Corpuscular HGB Conc 31.1 g/dL (31.6-35.5); Mean Corpuscular Hemoglobin 27.9 pg (28.0-33.3); Mean Corpuscular Volume 89.6 fL (83.0-100.0); Mean Platelet Volume 12.7 fL (9.4-12.4); Monocytes % 8.1 %; Neutrophils # 7.4 K/mcL (1.6-8.9); Platelet Count 201 K/mcL (140-400); Red Blood Count 4.02 M/mcL (4.19-5.50); Red Cell Distribution Width 14.3 % (11.5-14.5); Segmented Neutrophils % 60.9 %; White Blood Count 12.1 K/mcL (4.3-11.1)
[2022-09-03 05:01] LABS: BUN/Creatinine Ratio 29 (6-26); Blood Urea Nitrogen 20 mg/dL (8-23); Calcium 8.6 mg/dL (8.6-10.3); Carbon Dioxide 28 mEq/L (23-29); Chloride 105 mEq/L (98-107); Glucose 160 mg/dL (70-105); Magnesium 1.9 mg/dL (1.6-2.6); Osmolality,Calculated 294 (280-300); Phosphorous 3.2 mg/dL (2.7-4.5); Sodium 139 mEq/L (136-145)
[2022-09-03] MEDS: *HR* Heparin 5,000 UNIT/ML VIAL SQ SCH ×2 (05:27→17:41)
[2022-09-03] MEDS: Pregabalin 50 MG CAPSULE PO SCH ×2 (07:42→20:55)
[2022-09-03] MEDS: Aspirin Enteric Coated 81 MG Tablet PO SCH (07:42)
[2022-09-03] MEDS: FLUoxetine 20 MG CAPSULE PO SCH (07:42)
[2022-09-03] MEDS: cefTRIAXone 1,000 MG in Water for inj. (sterile) 10 ML IVP SCH (07:43)
[2022-09-03] MEDS: Insulin LISPRO 300 UNITS/3 ML VIAL SUBQ SCH ×4 (07:53→20:55)
[2022-09-03] MEDS: Budesonide/Formoterol 160/4.5 1 PUFF INH IH SCH (08:01)
[2022-09-03] MEDS ORDERED: Furosemide 40 MG/4 ML VIAL IVP SCH (09:00)
[2022-09-03] MEDS ORDERED: Furosemide 40 MG TABLET PO SCH (09:00)
[2022-09-03] MEDS: Budesonide Neb 0.5 MG/2 ML IH SCH ×2 (10:53→22:20)
[2022-09-03] MEDS: Ipratropium/Albuterol Neb 3 ML IH SCH ×3 (10:54→22:20)
[2022-09-03] MEDS: Acetylcysteine 10% 2 ML INHSOL IH SCH ×3 (10:54→22:20)
[2022-09-03] MEDS: MethylPREDNISolone 40 MG/ML VIAL IVP SCH ×3 (11:36→23:30)
[2022-09-03] MEDS: Azithromycin 500 MG in 0.9 % Sodium Chloride 250 ML IVPB SCH (13:57)
[2022-09-03] MEDS: Melatonin 3 MG TABLET PO SCH (20:54)
[2022-09-03] MEDS: Latanoprost 2.5 ML BOTTLE BOTH EYES SCH (20:55)
[2022-09-04 02:16] LABS: Basophils % 0.2 %; Hematocrit 37.8 % (37.5-50.1); Immature Granulocytes % 0.7 % (0-4); Lymphocytes # 1.2 K/mcL (0.6-4.6); Lymphocytes % 9.3 %; Mean Corpuscular HGB Conc 31.7 g/dL (31.6-35.5); Mean Corpuscular Volume 88.1 fL (83.0-100.0); Mean Platelet Volume 12.1 fL (9.4-12.4); Monocytes # 0.2 K/mcL (0.0-1.3); Monocytes % 1.4 %; Neutrophils # 11.2 K/mcL (1.6-8.9); Platelet Count 222 K/mcL (140-400); Red Blood Count 4.29 M/mcL (4.19-5.50); Red Cell Distribution Width 14.3 % (11.5-14.5); Segmented Neutrophils % 88.4 %; White Blood Count 12.7 K/mcL (4.3-11.1)
[2022-09-04 02:40] LABS: BUN/Creatinine Ratio 29 (6-26); Blood Urea Nitrogen 23 mg/dL (8-23); Calcium 9.6 mg/dL (8.6-10.3); Carbon Dioxide 28 mEq/L (23-29); Chloride 104 mEq/L (98-107); Glucose 293 mg/dL (70-105); Magnesium 2.2 mg/dL (1.6-2.6); Osmolality,Calculated 298 (280-300); Phosphorous 2.5 mg/dL (2.7-4.5); Potassium 5.1 mEq/L (3.5-5.1); Sodium 137 mEq/L (136-145)
[2022-09-04] MEDS: Acetylcysteine 10% 2 ML INHSOL IH SCH ×4 (04:37→21:45)
[2022-09-04] MEDS: Ipratropium/Albuterol Neb 3 ML IH SCH ×4 (04:37→21:45)
[2022-09-04] MEDS: *HR* Heparin 5,000 UNIT/ML VIAL SQ SCH ×2 (04:52→17:30)
[2022-09-04] MEDS: Insulin LISPRO 300 UNITS/3 ML VIAL SUBQ SCH ×4 (08:46→20:01)
[2022-09-04] MEDS: MethylPREDNISolone 40 MG/ML VIAL IVP SCH ×3 (08:47→22:38)
[2022-09-04] MEDS: cefTRIAXone 1,000 MG in Water for inj. (sterile) 10 ML IVP SCH (08:48)
[2022-09-04] MEDS: Furosemide 40 MG/4 ML VIAL IVP SCH (08:48)
[2022-09-04] MEDS: Pregabalin 50 MG CAPSULE PO SCH ×2 (08:49→19:59)
[2022-09-04] MEDS: FLUoxetine 20 MG CAPSULE PO SCH (08:49)
[2022-09-04] MEDS: Aspirin Enteric Coated 81 MG Tablet PO SCH (08:49)
[2022-09-04] MEDS: Acetaminophen 325 MG TABLET PO PRN ×2 (08:52→20:03)
[2022-09-04] MEDS: Budesonide Neb 0.5 MG/2 ML IH SCH ×2 (10:30→21:45)
[2022-09-04] MEDS: Azithromycin 500 MG in 0.9 % Sodium Chloride 250 ML IVPB SCH (14:59)
[2022-09-04] MEDS: Melatonin 3 MG TABLET PO SCH (19:59)
[2022-09-04] MEDS: Latanoprost 2.5 ML BOTTLE BOTH EYES SCH (20:00)
[2022-09-04] MEDS: Insulin DETEMIR 100 UNIT/ML X5UNITS SUBQ SCH (20:00)
[2022-09-05] MEDS: Acetylcysteine 10% 2 ML INHSOL IH SCH ×4 (03:49→21:46)
[2022-09-05] MEDS: Ipratropium/Albuterol Neb 3 ML IH SCH ×4 (03:49→21:46)
[2022-09-05 04:32] LABS: Basophils % 0.2 %; Hematocrit 37.7 % (37.5-50.1); Hemoglobin 11.9 g/dL (12.9-16.9); Immature Granulocytes % 0.8 % (0-4); Lymphocytes # 1.6 K/mcL (0.6-4.6); Lymphocytes % 8.4 %; Mean Corpuscular HGB Conc 31.6 g/dL (31.6-35.5); Mean Corpuscular Hemoglobin 27.7 pg (28.0-33.3); Mean Corpuscular Volume 87.9 fL (83.0-100.0); Mean Platelet Volume 12.7 fL (9.4-12.4); Monocytes # 0.3 K/mcL (0.0-1.3); Monocytes % 1.7 %; Neutrophils # 17.3 K/mcL (1.6-8.9); Platelet Count 231 K/mcL (140-400); Red Blood Count 4.29 M/mcL (4.19-5.50); Red Cell Distribution Width 14.2 % (11.5-14.5); Segmented Neutrophils % 88.9 %
[2022-09-05 04:44] LABS: White Blood Count 19.5 K/mcL (4.3-11.1)
[2022-09-05 04:49] LABS: BUN/Creatinine Ratio 32 (6-26); Blood Urea Nitrogen 22 mg/dL (8-23); Calcium 9.4 mg/dL (8.6-10.3); Carbon Dioxide 28 mEq/L (23-29); Chloride 99 mEq/L (98-107); Glucose 305 mg/dL (70-105); Magnesium 2.3 mg/dL (1.6-2.6); Osmolality,Calculated 293 (280-300); Phosphorous 3.2 mg/dL (2.7-4.5); Potassium 4.5 mEq/L (3.5-5.1); Sodium 134 mEq/L (136-145)
[2022-09-05] MEDS: *HR* Heparin 5,000 UNIT/ML VIAL SQ SCH ×2 (06:02→17:01)
[2022-09-05] MEDS: Insulin LISPRO 300 UNITS/3 ML VIAL SUBQ SCH ×5 (09:29→22:38)
[2022-09-05] MEDS: MethylPREDNISolone 40 MG/ML VIAL IVP SCH ×3 (09:30→23:52)
[2022-09-05] MEDS: Aspirin Enteric Coated 81 MG Tablet PO SCH (09:31)
[2022-09-05] MEDS: Furosemide 40 MG/4 ML VIAL IVP SCH (09:31)
[2022-09-05] MEDS: Insulin DETEMIR 100 UNIT/ML X5UNITS SUBQ SCH ×2 (09:32→22:00)
[2022-09-05] MEDS: Pregabalin 50 MG CAPSULE PO SCH ×2 (09:32→22:00)
[2022-09-05] MEDS: cefTRIAXone 1,000 MG in Water for inj. (sterile) 10 ML IVP SCH (09:33)
[2022-09-05] MEDS: FLUoxetine 20 MG CAPSULE PO SCH (09:33)
[2022-09-05] MEDS: Acetaminophen 325 MG TABLET PO PRN ×2 (09:46→22:06)
[2022-09-05] MEDS: Budesonide Neb 0.5 MG/2 ML IH SCH ×2 (10:23→21:46)
[2022-09-05] MEDS: Azithromycin 500 MG in 0.9 % Sodium Chloride 250 ML IVPB SCH (14:00)
[2022-09-05] MEDS ORDERED: Insulin Human Regular 10 UNIT in 0.9 % Sodium Chloride 10 ML IV ONE (16:36)
[2022-09-05] MEDS: Doxycycline 100 MG in 0.9 % Sodium Chloride Mini Bag 100 ML IVPB SCH (17:01)
[2022-09-05] MEDS: Melatonin 3 MG TABLET PO SCH (22:00)
[2022-09-05] MEDS: Latanoprost 2.5 ML BOTTLE BOTH EYES SCH (22:05)
[2022-09-06] MEDS: Acetylcysteine 10% 2 ML INHSOL IH SCH ×4 (04:32→21:09)
[2022-09-06] MEDS: Ipratropium/Albuterol Neb 3 ML IH SCH ×4 (04:34→21:09)
[2022-09-06] MEDS: Doxycycline 100 MG in 0.9 % Sodium Chloride Mini Bag 100 ML IVPB SCH ×2 (05:43→17:03)
[2022-09-06] MEDS: *HR* Heparin 5,000 UNIT/ML VIAL SQ SCH ×2 (05:44→17:03)
[2022-09-06] MEDS: Acetaminophen 325 MG TABLET PO PRN ×2 (05:49→20:18)
[2022-09-06 06:35] LABS: Basophils % 0.2 %; Hematocrit 37.2 % (37.5-50.1); Hemoglobin 11.9 g/dL (12.9-16.9); Lymphocytes # 1.7 K/mcL (0.6-4.6); Mean Corpuscular Hemoglobin 28.1 pg (28.0-33.3); Mean Corpuscular Volume 87.7 fL (83.0-100.0); Mean Platelet Volume 12.4 fL (9.4-12.4); Monocytes # 0.6 K/mcL (0.0-1.3); Monocytes % 3.1 %; Platelet Count 232 K/mcL (140-400); Red Blood Count 4.24 M/mcL (4.19-5.50); Red Cell Distribution Width 14.4 % (11.5-14.5); Segmented Neutrophils % 86.7 %; White Blood Count 18.5 K/mcL (4.3-11.1)
[2022-09-06 06:55] LABS: BUN/Creatinine Ratio 39 (6-26); Blood Urea Nitrogen 29 mg/dL (8-23); Calcium 9.3 mg/dL (8.6-10.3); Carbon Dioxide 28 mEq/L (23-29); Chloride 98 mEq/L (98-107); Glucose 317 mg/dL (70-105); Magnesium 2.3 mg/dL (1.6-2.6); Osmolality,Calculated 296 (280-300); Phosphorous 3.6 mg/dL (2.7-4.5); Potassium 4.7 mEq/L (3.5-5.1); Sodium 134 mEq/L (136-145)
[2022-09-06] MEDS: Insulin DETEMIR 100 UNIT/ML X5UNITS SUBQ SCH ×2 (07:54→20:07)
[2022-09-06] MEDS: Pregabalin 50 MG CAPSULE PO SCH ×2 (07:54→20:07)
[2022-09-06] MEDS: Aspirin Enteric Coated 81 MG Tablet PO SCH (07:54)
[2022-09-06] MEDS: FLUoxetine 20 MG CAPSULE PO SCH (07:54)
[2022-09-06] MEDS: Insulin LISPRO 300 UNITS/3 ML VIAL SUBQ SCH ×4 (07:55→20:10)
[2022-09-06] MEDS: MethylPREDNISolone 40 MG/ML VIAL IVP SCH ×2 (07:55→17:03)
[2022-09-06] MEDS: Furosemide 40 MG/4 ML VIAL IVP SCH (07:55)
[2022-09-06] MEDS ORDERED: Furosemide 40 MG/4 ML VIAL IVP ONE (10:29)
[2022-09-06] MEDS: Budesonide Neb 0.5 MG/2 ML IH SCH ×2 (10:36→21:48)
[2022-09-06] MEDS: Melatonin 3 MG TABLET PO SCH (20:07)
[2022-09-06] MEDS: Latanoprost 2.5 ML BOTTLE BOTH EYES SCH (20:07)
[2022-09-07] MEDS: MethylPREDNISolone 40 MG/ML VIAL IVP SCH ×2 (00:34→06:51)
[2022-09-07] MEDS: Ipratropium/Albuterol Neb 3 ML IH SCH ×4 (03:48→21:25)
[2022-09-07] MEDS: Acetylcysteine 10% 2 ML INHSOL IH SCH ×4 (03:49→21:26)
[2022-09-07 04:40] LABS: Basophils # 0.1 K/mcL (0.0-0.2); Basophils % 0.3 %; Hemoglobin 12.4 g/dL (12.9-16.9); Immature Granulocytes % 1.3 % (0-4); Lymphocytes # 1.7 K/mcL (0.6-4.6); Lymphocytes % 8.9 %; Mean Corpuscular HGB Conc 31.8 g/dL (31.6-35.5); Mean Corpuscular Hemoglobin 27.6 pg (28.0-33.3); Mean Corpuscular Volume 86.9 fL (83.0-100.0); Mean Platelet Volume 12.1 fL (9.4-12.4); Monocytes # 0.6 K/mcL (0.0-1.3); Monocytes % 3.1 %; Platelet Count 242 K/mcL (140-400); Red Blood Count 4.49 M/mcL (4.19-5.50); Red Cell Distribution Width 14.3 % (11.5-14.5); Segmented Neutrophils % 86.4 %; White Blood Count 18.5 K/mcL (4.3-11.1)
[2022-09-07 04:57] LABS: BUN/Creatinine Ratio 36 (6-26); Blood Urea Nitrogen 27 mg/dL (8-23); Calcium 9.1 mg/dL (8.6-10.3); Carbon Dioxide 28 mEq/L (23-29); Chloride 97 mEq/L (98-107); Glucose 300 mg/dL (70-105); Magnesium 2.2 mg/dL (1.6-2.6); Osmolality,Calculated 292 (280-300); Phosphorous 3.2 mg/dL (2.7-4.5); Potassium 4.5 mEq/L (3.5-5.1); Sodium 133 mEq/L (136-145)
[2022-09-07] MEDS: Insulin LISPRO 300 UNITS/3 ML VIAL SUBQ SCH ×4 (06:50→21:25)
[2022-09-07] MEDS: *HR* Heparin 5,000 UNIT/ML VIAL SQ SCH ×2 (06:51→16:36)
[2022-09-07] MEDS: Doxycycline 100 MG in 0.9 % Sodium Chloride Mini Bag 100 ML IVPB SCH ×2 (06:52→16:35)
[2022-09-07] MEDS: FLUoxetine 20 MG CAPSULE PO SCH (09:32)
[2022-09-07] MEDS: Pregabalin 50 MG CAPSULE PO SCH ×2 (09:32→21:19)
[2022-09-07] MEDS: Insulin DETEMIR 100 UNIT/ML X5UNITS SUBQ SCH ×2 (09:32→21:22)
[2022-09-07] MEDS: Aspirin Enteric Coated 81 MG Tablet PO SCH (09:33)
[2022-09-07] MEDS: Budesonide Neb 0.5 MG/2 ML IH SCH ×2 (10:27→21:25)
[2022-09-07] MEDS: Furosemide 40 MG/4 ML VIAL IVP SCH (16:35)
[2022-09-07] MEDS: Acetaminophen 325 MG TABLET PO PRN (21:19)
[2022-09-07] MEDS: Melatonin 3 MG TABLET PO SCH (21:19)
[2022-09-07] MEDS: Latanoprost 2.5 ML BOTTLE BOTH EYES SCH (21:22)
[2022-09-08] MEDS: Acetylcysteine 10% 2 ML INHSOL IH SCH ×4 (03:51→20:53)
[2022-09-08] MEDS: Ipratropium/Albuterol Neb 3 ML IH SCH ×4 (03:54→20:53)
[2022-09-08] MEDS: *HR* Heparin 5,000 UNIT/ML VIAL SQ SCH ×2 (06:10→17:35)
[2022-09-08] MEDS: Doxycycline 100 MG in 0.9 % Sodium Chloride Mini Bag 100 ML IVPB SCH ×2 (06:16→17:35)
[2022-09-08 06:22] LABS: ABG Base Excess 5 mEq/L (-2 to 3); ABG HCO3 30 mEq/L (21-27); ABG Oxygen Saturation 93 % (95-98); ABG PCO2 44 mmHg (35-45); ABG PH 7.44 pH Units (7.32-7.45); ABG PO2 65 mmHg (85-104); ABG TCO2 31 mEq/L (20-26)
[2022-09-08] MEDS: FLUoxetine 20 MG CAPSULE PO SCH (08:20)
[2022-09-08] MEDS: predniSONE 20 MG TABLET PO SCH (08:20)
[2022-09-08] MEDS: Pregabalin 50 MG CAPSULE PO SCH ×2 (08:21→20:57)
[2022-09-08] MEDS: Furosemide 40 MG/4 ML VIAL IVP SCH (08:21)
[2022-09-08] MEDS: Aspirin Enteric Coated 81 MG Tablet PO SCH (08:21)
[2022-09-08] MEDS: Insulin DETEMIR 100 UNIT/ML X5UNITS SUBQ SCH ×2 (08:22→21:00)
[2022-09-08] MEDS: Insulin LISPRO 300 UNITS/3 ML VIAL SUBQ SCH ×4 (08:23→21:00)
[2022-09-08] MEDS: Acetaminophen 325 MG TABLET PO PRN ×2 (08:31→20:57)
[2022-09-08] MEDS: Budesonide Neb 0.5 MG/2 ML IH SCH ×2 (09:51→20:53)
[2022-09-08] MEDS: Melatonin 3 MG TABLET PO SCH (20:57)
[2022-09-08] MEDS: Latanoprost 2.5 ML BOTTLE BOTH EYES SCH (20:57)
[2022-09-09] MEDS: Ipratropium/Albuterol Neb 3 ML IH SCH ×4 (04:06→22:14)
[2022-09-09] MEDS: Acetylcysteine 10% 2 ML INHSOL IH SCH ×4 (04:06→22:14)
[2022-09-09] MEDS: *HR* Heparin 5,000 UNIT/ML VIAL SQ SCH ×2 (06:37→17:37)
[2022-09-09] MEDS: Doxycycline 100 MG in 0.9 % Sodium Chloride Mini Bag 100 ML IVPB SCH ×2 (06:43→17:37)
[2022-09-09] MEDS: Furosemide 40 MG/4 ML VIAL IVP SCH (09:32)
[2022-09-09] MEDS: Pregabalin 50 MG CAPSULE PO SCH ×2 (09:33→20:30)
[2022-09-09] MEDS: Insulin DETEMIR 100 UNIT/ML X5UNITS SUBQ SCH ×2 (09:33→20:30)
[2022-09-09] MEDS: Aspirin Enteric Coated 81 MG Tablet PO SCH (09:33)
[2022-09-09] MEDS: FLUoxetine 20 MG CAPSULE PO SCH (09:33)
[2022-09-09] MEDS: predniSONE 20 MG TABLET PO SCH (09:33)
[2022-09-09] MEDS: Insulin LISPRO 300 UNITS/3 ML VIAL SUBQ SCH ×4 (09:34→20:31)
[2022-09-09] MEDS: Budesonide Neb 0.5 MG/2 ML IH SCH ×2 (09:40→22:14)
[2022-09-09] MEDS: Acetaminophen 325 MG TABLET PO PRN ×2 (09:43→20:30)
[2022-09-09] MEDS: Melatonin 3 MG TABLET PO SCH (20:30)
[2022-09-09] MEDS: Latanoprost 2.5 ML BOTTLE BOTH EYES SCH (20:31)
[2022-09-10] MEDS: Ipratropium/Albuterol Neb 3 ML IH SCH ×4 (03:56→23:13)
[2022-09-10] MEDS: Acetylcysteine 10% 2 ML INHSOL IH SCH ×4 (03:56→23:13)
[2022-09-10] MEDS: Doxycycline 100 MG in 0.9 % Sodium Chloride Mini Bag 100 ML IVPB SCH (05:24)
[2022-09-10] MEDS: *HR* Heparin 5,000 UNIT/ML VIAL SQ SCH ×2 (05:24→17:39)
[2022-09-10] MEDS: Furosemide 40 MG/4 ML VIAL IVP SCH (08:01)
[2022-09-10] MEDS: Insulin LISPRO 300 UNITS/3 ML VIAL SUBQ SCH ×4 (08:05→20:44)
[2022-09-10] MEDS: Pregabalin 50 MG CAPSULE PO SCH ×2 (08:06→20:41)
[2022-09-10] MEDS: predniSONE 20 MG TABLET PO SCH (08:06)
[2022-09-10] MEDS: Aspirin Enteric Coated 81 MG Tablet PO SCH (08:07)
[2022-09-10] MEDS: FLUoxetine 20 MG CAPSULE PO SCH (08:07)
[2022-09-10] MEDS: Acetaminophen 325 MG TABLET PO PRN ×2 (08:13→20:42)
[2022-09-10] MEDS: Insulin DETEMIR 100 UNIT/ML X5UNITS SUBQ SCH ×2 (08:32→20:43)
[2022-09-10 08:55] LABS: BUN/Creatinine Ratio 39 (6-26); Blood Urea Nitrogen 34 mg/dL (8-23); Calcium 9.5 mg/dL (8.6-10.3); Carbon Dioxide 30 mEq/L (23-29); Chloride 98 mEq/L (98-107); Glucose 223 mg/dL (70-105); Osmolality,Calculated 299 (280-300); Potassium 3.8 mEq/L (3.5-5.1); Sodium 137 mEq/L (136-145)
[2022-09-10] MEDS: Budesonide Neb 0.5 MG/2 ML IH SCH ×2 (10:01→23:13)
[2022-09-10] MEDS: Melatonin 3 MG TABLET PO SCH (20:42)
[2022-09-10] MEDS: Latanoprost 2.5 ML BOTTLE BOTH EYES SCH (20:43)
[2022-09-11] MEDS: Ipratropium/Albuterol Neb 3 ML IH SCH ×4 (04:04→22:57)
[2022-09-11] MEDS: Acetylcysteine 10% 2 ML INHSOL IH SCH ×2 (04:04→10:07)
[2022-09-11] MEDS: *HR* Heparin 5,000 UNIT/ML VIAL SQ SCH ×2 (06:11→16:31)
[2022-09-11] MEDS: Insulin DETEMIR 100 UNIT/ML X5UNITS SUBQ SCH ×2 (07:18→20:30)
[2022-09-11] MEDS: FLUoxetine 20 MG CAPSULE PO SCH (07:18)
[2022-09-11] MEDS: predniSONE 20 MG TABLET PO SCH (07:18)
[2022-09-11] MEDS: Pregabalin 50 MG CAPSULE PO SCH ×2 (07:18→20:30)
[2022-09-11] MEDS: Aspirin Enteric Coated 81 MG Tablet PO SCH (07:18)
[2022-09-11] MEDS: Insulin LISPRO 300 UNITS/3 ML VIAL SUBQ SCH ×4 (07:19→20:29)
[2022-09-11] MEDS: Acetaminophen 325 MG TABLET PO PRN ×2 (07:26→16:31)
[2022-09-11] MEDS: Furosemide 40 MG TABLET PO SCH (07:32)
[2022-09-11 09:31] LABS: Basophils # 0.2 K/mcL (0.0-0.2); Basophils % 0.7 %; Eosinophils # 0.5 K/mcL (0.0-0.6); Eosinophils % 2.4 %; Hematocrit 40.9 % (37.5-50.1); Hemoglobin 13.1 g/dL (12.9-16.9); Immature Granulocytes % 3.1 % (0-4); Lymphocytes % 22.5 %; Mean Corpuscular Hemoglobin 27.8 pg (28.0-33.3); Mean Corpuscular Volume 86.8 fL (83.0-100.0); Mean Platelet Volume 12.6 fL (9.4-12.4); Monocytes # 0.9 K/mcL (0.0-1.3); Monocytes % 3.9 %; Neutrophils # 15.1 K/mcL (1.6-8.9); Platelet Count 264 K/mcL (140-400); Red Blood Count 4.71 M/mcL (4.19-5.50); Red Cell Distribution Width 14.7 % (11.5-14.5); Segmented Neutrophils % 67.4 %; White Blood Count 22.4 K/mcL (4.3-11.1)
[2022-09-11 09:42] LABS: Potassium 3.8 mEq/L (3.5-5.1)
[2022-09-11] MEDS: Budesonide Neb 0.5 MG/2 ML IH SCH ×2 (10:07→22:57)
[2022-09-11] MEDS: Melatonin 3 MG TABLET PO SCH (20:30)
[2022-09-11] MEDS: Latanoprost 2.5 ML BOTTLE BOTH EYES SCH (20:30)
[2022-09-12 03:31] LABS: Basophils # 0.2 K/mcL (0.0-0.2); Basophils % 0.7 %; Eosinophils # 0.3 K/mcL (0.0-0.6); Eosinophils % 1.4 %; Hematocrit 38.7 % (37.5-50.1); Hemoglobin 12.5 g/dL (12.9-16.9); Immature Granulocytes % 2.5 % (0-4); Lymphocytes # 5.8 K/mcL (0.6-4.6); Lymphocytes % 26.4 %; Mean Corpuscular HGB Conc 32.3 g/dL (31.6-35.5); Mean Corpuscular Volume 86.8 fL (83.0-100.0); Mean Platelet Volume 12.2 fL (9.4-12.4); Monocytes # 1.2 K/mcL (0.0-1.3); Monocytes % 5.6 %; Platelet Count 237 K/mcL (140-400); Red Blood Count 4.46 M/mcL (4.19-5.50); Red Cell Distribution Width 14.5 % (11.5-14.5); Segmented Neutrophils % 63.4 %; White Blood Count 22.1 K/mcL (4.3-11.1)
[2022-09-12 03:57] LABS: Calcium 8.9 mg/dL (8.6-10.3); Potassium 4.2 mEq/L (3.5-5.1)
[2022-09-12] MEDS: Ipratropium/Albuterol Neb 3 ML IH SCH ×4 (03:57→21:57)
[2022-09-12] MEDS: *HR* Heparin 5,000 UNIT/ML VIAL SQ SCH ×2 (05:17→17:14)
[2022-09-12] MEDS: Furosemide 40 MG TABLET PO SCH (08:53)
[2022-09-12] MEDS: predniSONE 20 MG TABLET PO SCH (08:53)
[2022-09-12] MEDS: Aspirin Enteric Coated 81 MG Tablet PO SCH (08:53)
[2022-09-12] MEDS: FLUoxetine 20 MG CAPSULE PO SCH (08:53)
[2022-09-12] MEDS: Pregabalin 50 MG CAPSULE PO SCH ×2 (08:53→20:04)
[2022-09-12] MEDS: Insulin LISPRO 300 UNITS/3 ML VIAL SUBQ SCH ×4 (08:54→20:05)
[2022-09-12] MEDS: Acetaminophen 325 MG TABLET PO PRN ×2 (08:55→20:04)
[2022-09-12] MEDS: Insulin DETEMIR 100 UNIT/ML X5UNITS SUBQ SCH ×2 (08:55→20:05)
[2022-09-12] MEDS: Budesonide Neb 0.5 MG/2 ML IH SCH ×2 (10:23→21:57)
[2022-09-12] MEDS: Melatonin 3 MG TABLET PO SCH (20:05)
[2022-09-12] MEDS: Nystatin POWDER 30 GM BOTTLE TP SCH (20:06)
[2022-09-12] MEDS: Latanoprost 2.5 ML BOTTLE BOTH EYES SCH (20:14)
[2022-09-13] MEDS: Ipratropium/Albuterol Neb 3 ML IH SCH ×4 (04:30→22:23)
[2022-09-13] MEDS: *HR* Heparin 5,000 UNIT/ML VIAL SQ SCH ×2 (05:35→17:07)
[2022-09-13] MEDS: Aspirin Enteric Coated 81 MG Tablet PO SCH (09:29)
[2022-09-13] MEDS: Furosemide 40 MG TABLET PO SCH (09:29)
[2022-09-13] MEDS: FLUoxetine 20 MG CAPSULE PO SCH (09:29)
[2022-09-13] MEDS: predniSONE 20 MG TABLET PO SCH (09:30)
[2022-09-13] MEDS: Acetaminophen 325 MG TABLET PO PRN ×2 (09:36→20:35)
[2022-09-13] MEDS: Pregabalin 50 MG CAPSULE PO SCH ×2 (09:36→20:35)
[2022-09-13] MEDS: Insulin LISPRO 300 UNITS/3 ML VIAL SUBQ SCH ×4 (09:42→20:36)
[2022-09-13] MEDS: Insulin DETEMIR 100 UNIT/ML X5UNITS SUBQ SCH ×2 (09:50→20:36)
[2022-09-13] MEDS: Budesonide Neb 0.5 MG/2 ML IH SCH ×2 (09:59→22:23)
[2022-09-13] MEDS: Nystatin POWDER 30 GM BOTTLE TP SCH ×2 (16:57→20:37)
[2022-09-13] MEDS: Melatonin 3 MG TABLET PO SCH (20:35)
[2022-09-13] MEDS: Latanoprost 2.5 ML BOTTLE BOTH EYES SCH (20:36)
[2022-09-14 01:42] LABS: Basophils # 0.1 K/mcL (0.0-0.2); Basophils % 0.7 %; Eosinophils # 0.2 K/mcL (0.0-0.6); Eosinophils % 1.1 %; Hematocrit 40.6 % (37.5-50.1); Hemoglobin 13.1 g/dL (12.9-16.9); Immature Granulocytes % 2.3 % (0-4); Lymphocytes # 5.2 K/mcL (0.6-4.6); Lymphocytes % 24.5 %; Mean Corpuscular HGB Conc 32.3 g/dL (31.6-35.5); Mean Corpuscular Hemoglobin 27.9 pg (28.0-33.3); Mean Corpuscular Volume 86.6 fL (83.0-100.0); Mean Platelet Volume 12.6 fL (9.4-12.4); Monocytes # 1.2 K/mcL (0.0-1.3); Monocytes % 5.7 %; Neutrophils # 14.1 K/mcL (1.6-8.9); Platelet Count 244 K/mcL (140-400); Red Blood Count 4.69 M/mcL (4.19-5.50); Red Cell Distribution Width 14.5 % (11.5-14.5); Segmented Neutrophils % 65.7 %; White Blood Count 21.4 K/mcL (4.3-11.1)
[2022-09-14 02:03] LABS: BUN/Creatinine Ratio 40 (6-26); Blood Urea Nitrogen 34 mg/dL (8-23); Calcium 9.4 mg/dL (8.6-10.3); Carbon Dioxide 29 mEq/L (23-29); Chloride 100 mEq/L (98-107); Glucose 192 mg/dL (70-105); Osmolality,Calculated 295 (280-300); Potassium 3.8 mEq/L (3.5-5.1); Sodium 136 mEq/L (136-145)
[2022-09-14] MEDS: Ipratropium/Albuterol Neb 3 ML IH SCH ×3 (03:56→15:25)
[2022-09-14] MEDS: *HR* Heparin 5,000 UNIT/ML VIAL SQ SCH ×2 (06:13→17:44)
[2022-09-14] MEDS: Pregabalin 50 MG CAPSULE PO SCH (09:10)
[2022-09-14] MEDS: Furosemide 40 MG TABLET PO SCH (09:11)
[2022-09-14] MEDS: Aspirin Enteric Coated 81 MG Tablet PO SCH (09:11)
[2022-09-14] MEDS: FLUoxetine 20 MG CAPSULE PO SCH (09:11)
[2022-09-14] MEDS: predniSONE 20 MG TABLET PO SCH (09:12)
[2022-09-14] MEDS: Acetaminophen 325 MG TABLET PO PRN (09:14)
[2022-09-14] MEDS: Insulin LISPRO 300 UNITS/3 ML VIAL SUBQ SCH ×3 (09:18→17:27)
[2022-09-14] MEDS: Insulin DETEMIR 100 UNIT/ML X5UNITS SUBQ SCH (09:28)
[2022-09-14] MEDS: Nystatin POWDER 30 GM BOTTLE TP SCH (09:28)
[2022-09-14] MEDS: Budesonide Neb 0.5 MG/2 ML IH SCH (10:07)
[2022-09-14 17:51] LABS: Influenza A PCR Negative (Negative); Influenza B PCR Negative (Negative); Resp. Syncytial Virus PCR Negative (Negative)
[2022-09-14 17:52] LABS: SARS-CoV-2 by PCR (In House) Negative (Negative)
[2022-09-14 18:26] VITALS: BP 146/88; PULSE 83; TEMP 97.6; O2SAT 96
== END 2022-09-14 19:13 | disposition other institution (70) | DRG 871 ==
LOC: EMEROOARM 14:42 → 2ANU 14:42 → SUATTDRO 18:25 → 2ANU 18:44
PROVIDERS: ADMIT Internal Medicine; ATTEND Family Medicine